=== PATIENT | female | born 2005 | race Caucasian/White ===

== ENCOUNTER 2023-02-07 16:06 | Emergency (ER) | payer BC, SELFPAY ==
[2023-02-07 16:09] VITALS: BP 143/92; PULSE 124; RESP 20; TEMP 36.8; O2SAT 97; BMI 29.2
[2023-02-07 16:13] VITALS: BP 143/92; PULSE 120; PULSE 123; RESP 21; RESP 24; O2SAT 96; O2SAT 97
[2023-02-07 16:16] VITALS: PULSE 128
--- NOTE | 2023-02-07 16:16 | XR_ITS ---
The [address] [address] Patient Name: DELL SALAZAR MRN: [id number] date: 2005 Sex: F Assigned Patient Location: ED.MAIN Current Patient Location: ED.MAIN Accession/Order Number: [id number] Exam Date: 02/07/2023 17:00 Report Date: 02/07/2023 17:32 At the request of: TRUDY VILLEGAS Procedure: XR chest 1V EXAMINATION: XR chest 1V HISTORY: Chest pain COMPARISON: None. TECHNIQUE: Portable chest FINDINGS: The lung parenchyma is free of consolidation or infiltrate. No pneumothorax or pleural effusion. The cardiac, mediastinal and hilar contours are normal. The visualized osseous structures exhibit no gross abnormality. IMPRESSION: No acute cardiopulmonary abnormality. Electronically authenticated by: MIKE HARE Date: 02/07/2023 17:32
--- NOTE | 2023-02-07 16:16 | ECG_ITS ---
[facility] Test Date: 2023-02-07 Pat Name: Shalonda Lynne Department: Room: - Gender: Female [employer]: : 2005 Requested By: Order Number: [id number] Reading MD: CHANDAN CHACKO Measurements Intervals [place] Rate: 116 P: 41 WA: 116 QRS: 68 QRSD: 78 T: 34 QT: 304 QTc: 373 Interpretive Statements 1120 Sinus tachycardia 2210 Short WA interval 9150 abnormal ECG No previous ECG available for comparison Electronically Signed On 02-08-2023 6:53:18 EDT by CHANDAN CHACKO
[2023-02-07 16:30] VITALS: BP 130/79; PULSE 95; RESP 14; O2SAT 97
[2023-02-07 16:44] LABS: Anion Gap 12.9; BUN Creatinine Ratio 9.2; Calcium 9.5 mg/dL (8.5-10.1); Carbon Dioxide 22.3 mmol/L (21.0-32.0); Chloride 107 mmol/L (98-107); Estimated GFR (African America >60 (>=60); Estimated GFR (Non-African Ame >60 (>=60); Glucose 100 mg/dL (74-106); Potassium 4.2 mmol/L (3.5-5.1); Sodium 138 mmol/L (136-145)
[2023-02-07 16:44] LABS: Basophils Percent Auto 0.5 % (0.2-2.0); Eosinophils Absolute Auto 0.2 10^3/uL (0.0-0.7); Eosinophils Percent Auto 1.9 % (0.9-7.0); Hematocrit 43.6 % (36.0-48.0); Hemoglobin 14.4 g/dL (12.0-16.0); Immature Granulocytes Abs Auto 0.02 10^3/uL (0.00-0.03); Immature Granulocytes Pct Auto 0.3 % (0.0-0.5); Lymphocytes Absolute Auto 2.7 10^3/uL (1.2-3.8); Lymphocytes Percent Auto 34.8 % (20.5-60.0); Mean Corpuscular Hemoglobin 28.2 pg (26.7-34.0); Mean Corpuscular Volume 85.5 fL (81.0-99.0); Mean Platelet Volume 10.9 fL (9.5-13.5); Monocytes Absolute Auto 0.3 10^3/uL (0.3-0.8); Monocytes Percent Auto 4.1 % (1.7-12.0); Neutrophils Absolute Auto 4.6 10^3/uL (1.4-6.5); Neutrophils Percent Auto 58.4 % (43.0-75.0); Platelet Count 317 10^3/uL (150-450); Red Cell Distribution Width 12.7 % (11.0-15.0); White Blood Count 7.9 10^3/uL (4.0-11.0)
[2023-02-07] MEDS: 0.9 % SODIUM CHLORIDE 1,000 ML 1000 ML IV (16:47)
[2023-02-07] MEDS: KETOROLAC TROMETHAMINE 30 MG/ML VIAL IVP (16:47)
[2023-02-07 17:00] VITALS: BP 116/67; PULSE 88; RESP 16; O2SAT 99
[2023-02-07 17:05] LABS: D Dimer 0.43 mg/L FEU (<=0.59)
--- NOTE | 2023-02-07 17:18 | ED.CHESTPAI1 ---
HPI - Chest Pain General Chief Complaint: Chest Pain Stated Complaint: CHEST PAIN Time Seen by Provider: 02/07/23 16:15 Source: patient Mode of arrival: walk-in Limitations: no limitations History of Present Illness HPI narrative: She woke at 10am with mid-sternal chest pain. She had been experiencing pain between the shoulder blades for the last 3 days. Then the pain was in her chest and decreased in her back. She went to work and the pain increased - worse with deep breaths and movement of the left UE. No recent cough, injury to the chest or back. No GI or symptoms. She hasn't taken anything for pain. Related Data Home Medications Medication Instructions Recorded Confirmed control 02/07/23 Previous Rx's Medication Instructions Recorded nabumetone 750 mg tablet 750 mg PO BID PRN pain #20 tabs 02/07/23 Allergies Allergy/AdvReac Type Severity Reaction Status Date / Time No Known Drug Allergies Allergy Verified 02/07/23 16:12 Exam Narrative Exam Narrative: Nurses notes and vital signs reviewed and patient is not hypoxic. afebrile General: Well-appearing and in no apparent distress. Skin: Warm, dry, no pallor noted. No rash. Head: Normocephalic, atraumatic. Eye: Pupils are equal, round and EOMI. No scleral icterus. Ears, Nose, Mouth, and Throat: Oral mucosa is moist Cardiovascular: Regular Rate and Rhythm without murmur, gallop or rub. Respiratory: No accessory muscle use or respiratory distress. Lungs are clear to auscultation, no wheezing, rales or rhonchi Chest Wall: no tenderness on sternum palpation Back: No midline thoracic or lumbar vertebral tenderness. No CVA tenderness Musculoskeletal: normal ROM, no calf or popliteal tenderness, no lower extremity edema/swelling GI: Abdomen is soft, non-distended. Normal bowel sounds. No tenderness to palpation. No rebound, guarding, or rigidity noted. Neurological: A&O x4. No cranial nerve dysfunction observed. No truncal ataxia. Moves all extremities. Sensation intact. Psychiatric: Cooperative and interactive. Normal mood and affect. Constitutional Vital Signs - 24 hr 02/07/23 16:09 02/07/23 16:13 Temperature 98.2 F Pulse Rate 123 H Pulse Rate [Monitor] 124 H Respiratory Rate 20 24 Blood Pressure 143/92 H Blood Pressure [Right Arm] 143/92 H Pulse Oximetry 97 96 Oxygen Delivery Method Room Air Course Vital Signs Vital signs: Vital Signs Temperature 98.2 F 02/07/23 16:09 Pulse Rate 124 H 02/07/23 16:09 Respiratory Rate 20 02/07/23 16:09 Blood Pressure 143/92 H 02/07/23 16:09 Pulse Oximetry 97 02/07/23 16:09 Oxygen Delivery Method Room Air 02/07/23 16:09 Temperature 98.2 F 02/07/23 16:09 Pulse Rate 123 H 02/07/23 16:13 Respiratory Rate 24 02/07/23 16:13 Blood Pressure 143/92 H 02/07/23 16:13 Pulse Oximetry 96 02/07/23 16:13 Oxygen Delivery Method Room Air 02/07/23 16:09 MDM - Chest Pain MDM Narrative Medical decision making narrative: Patient was placed on radiographer cardiac catheterization and EKG obtained. Blood drawn and sent for evaluation. CXR obtained. Blood testing including screening d-dimer were normal. CXR negative. EKG = sinus tachycardia Patient was given IV Toradol. On recheck her HR normalized after receiving a Liter of NS IVF and her pain was markedly reduced after getting the IV Toradol. Discharged home with prescription for Relafen and instructions to see her PCP for follow or return to the ED as needed. Lab Data Attestation: I reviewed the patient's lab results. Labs: Lab Results 02/07/23 02/07/23 Range/Units 16:15 16:25 WBC 7.9 (4.0-11.0) 10^3/uL RBC 5.10 (4.20-5.40) 10^6/uL Hgb 14.4 (12.0-16.0) g/dL Hct 43.6 (36.0-48.0) % MCV 85.5 (81.0-99.0) fL MCH 28.2 (26.7-34.0) pg MCHC 33.0 (29.9-35.2) g/dL RDW 12.7 (11.0-15.0) % Plt Count 317 (150-450) 10^3/uL MPV 10.9 (9.5-13.5) fL Neut % (Auto) 58.4 (43.0-75.0) % Lymph % (Auto) 34.8 (20.5-60.0) % Ware % (Auto) 4.1 (1.7-12.0) % Eos % (Auto) 1.9 (0.9-7.0) % Baso % (Auto) 0.5 (0.2-2.0) % Neut # (Auto) 4.6 (1.4-6.5) 10^3/uL Lymph # (Auto) 2.7 (1.2-3.8) 10^3/uL Ware # (Auto) 0.3 (0.3-0.8) 10^3/uL Eos # (Auto) 0.2 (0.0-0.7) 10^3/uL Baso # (Auto) 0.0 (0.0-0.1) 10^3/uL Abs Immat Gran (auto) 0.02 (0.00-0.03) 10^3/uL Imm/Tot Granulo (auto) 0.3 (0.0-0.5) % D-Dimer 0.43 (<=0.59) mg/L FEU Sodium 138 (136-145) mmol/L Potassium 4.2 (3.5-5.1) mmol/L Chloride 107 (98-107) mmol/L Carbon Dioxide 22.3 (21.0-32.0) mmol/L Anion Gap 12.9 BUN 9.0 (7.0-18.0) mg/dL Creatinine 0.98 (0.55-1.02) mg/dL Est GFR ( Amer) >60 (>=60) Est GFR (Non-Af Amer) >60 (>=60) BUN/Creatinine Ratio 9.2 Glucose 100 (74-106) mg/dL Calcium 9.5 (8.5-10.1) mg/dL ECG Data Interpretation: EKG interpretation: Emergency Department physician interpretation. Sinus tachycardia at 116bpm. Normal axis, short [place] interval. No ST segment elevation or depression. Discharge Plan Discharge Chief Complaint: Chest Pain Clinical Impression: Pleurisy Patient Disposition: Home, Self-Care Time of Disposition Decision: 17:31 Prescriptions / Home Meds: New nabumetone 750 mg tablet 750 mg PO BID PRN (Reason: pain) Qty: 20 0RF No Action control Instructions: Pleurisy (ED) Stand Alone Forms: Portal Instructions Referrals: Physician,Non-Staff, MD [Primary Care Provider] - 1 week
[2023-02-07 17:30] VITALS: BP 105/71; PULSE 102; RESP 23; O2SAT 99
== END 2023-02-07 18:00 | disposition home or self-care (01) ==
PROVIDERS: Emergency Provider Emergency Medicine
DX: R09.1 Pleurisy (principal); Z79.3 Long term (current) use of hormonal contraceptives
CPT/HCPCS: 36415; 71045; 80048; 85025; 85378; 93005; 96374; 99285

== ENCOUNTER 2024-02-28 22:11 | Emergency (ER) | payer OTHER, SELFPAY ==
[2024-02-28 22:18] VITALS: BP 131/92; PULSE 111; TEMP 36.9; O2SAT 96; BMI 29.2
--- NOTE | 2024-02-28 22:22 | PC.NURSE ---
Small incision to left index finger, no redness or drainage. Patient reports washing area with soap and water immediately following needle stick.
--- NOTE | 2024-02-28 22:35 | ED.UPPEXIN1 ---
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 Does not believe the resident has any communicable diseases. Here for blood work per policy of her job. Related Data Home Medications ?Medication ?Instructions ?Recorded ?Confirmed control 02/07/23 Previous Rx's ?Medication ?Instructions ?Recorded nabumetone 750 mg tablet 750 mg PO BID PRN pain #20 tabs 02/07/23 Allergies Allergy/AdvReac Type Severity Reaction Status Date / Time No Known Drug Allergies Allergy Verified 02/28/24 22:18 Opioid HPI Opioid Management Most Recent Pain and Opioid Data: No Data to Display Review of Systems ROS Status of ROS 10 or more systems reviewed and unremarkable except as noted in history and below Exam Constitutional Vital Signs, click to edit/add: Last Vital Signs Temp 98.4 F 02/28/24 22:18 Pulse 111 H 02/28/24 22:18 Resp 18 02/28/24 22:18 BP 131/92 H 02/28/24 22:18 Pulse Ox 96 02/28/24 22:18 O2 Del Method Room Air 02/28/24 22:18 Common normals: no apparent distress, average body habitus, oriented x3, no limitations, healthy appearing, alert and well nourished [facility] Common normals: normocephalic and head/scalp atraumatic Eye Common normals: EOMs intact bilaterally and conjunctivae normal Respiratory Common normals: normal respiratory effort, no retractions and no use of accessory muscles Cardio Common normals: regular rate, regular rhythm, S1 normal heart sound and S2 normal heart sound Extremity Other: fine needle poke left index finger Neuro Common normals: oriented x3, CN's II-XII intact bilaterally, moves all extremities and no focal motor deficits Psych Appearance: grossly normal Course Vital Signs Vital signs: Vital Signs Temperature 98.4 F 02/28/24 22:18 Pulse Rate 111 H 02/28/24 22:18 Respiratory Rate 18 02/28/24 22:18 Blood Pressure 131/92 H 02/28/24 22:18 Pulse Oximetry 96 02/28/24 22:18 Oxygen Delivery Method Room Air 02/28/24 22:18 Temperature 98.4 F 02/28/24 22:18 Pulse Rate 111 H 02/28/24 22:18 Respiratory Rate 18 02/28/24 22:18 Blood Pressure 131/92 H 02/28/24 22:18 Pulse Oximetry 96 02/28/24 22:18 Oxygen Delivery Method Room Air 02/28/24 22:18 MDM - Extremity Injury (Upper) MDM Narrative Medical decision making narrative: patient presents after finger poke with contaminated needle at work. minute puncture wound of the index finger. labs drawn including HIV and hepatitis and patient discharged home Discharge Plan Discharge Stand Alone Forms: Portal Instructions Chief Complaint: Extremity Injury, Upper Clinical Impression: Puncture wound of finger of left hand Patient Disposition: Home, Self-Care Prescriptions / Home Meds: No Action control nabumetone 750 mg tablet 750 mg PO BID PRN (Reason: pain) Qty: 20 0RF Print Language: Romanian Instructions: Puncture Wound (ED) Referrals: Physician,Non-Staff, MD [Primary Care Provider] - 1 week
[2024-03-01 06:08] LABS: HBsAg Screen Negative (Negative); HCV Ab Non Reactive (Non Reactive); HIV Ab/p24 Ag Screen Non Reactive (Non Reactive); Hep A Ab, IgM Negative (Negative); Hep B Core Ab, IgM Negative (Negative)
== END 2024-02-28 23:49 | disposition home or self-care (01) ==
PROVIDERS: Emergency Provider Internal Medicine
DX: S61.231A Puncture wound without foreign body of left index finger without damage to nail, initial encounter (principal); Z77.21 Contact with and (suspected) exposure to potentially hazardous body fluids; W46.1XXA Contact with contaminated hypodermic needle, initial encounter
CPT/HCPCS: 36415; 80074; 87389; 99283

== ENCOUNTER 2024-04-17 19:08 | Outpatient (REF) | payer BC, SELFPAY ==
[2024-04-23 16:10] LABS: Age Gdln ACOG Testing Note (.); IGP, rfx Aptima HPV ASCU Note (.)
== END 2024-04-17 19:09 | disposition home or self-care (01) ==
LOC: LAB 19:08
PROVIDERS: Visit Provider Physician Assistant
DX: Z01.419 Encounter for gynecological examination (general) (routine) without abnormal findings (principal)
CPT/HCPCS: 88175

== ENCOUNTER 2025-04-21 12:15 | Outpatient (REF) | payer BC, SELFPAY ==
--- OUTSIDE RECORDS SUMMARY | 2025-04-21 12:21 | XMS_ITS | CCD ---
Author Organization [facility] Care Team Providers Care Mis Specialist Name Role Phone AMY RHOADES Admitting Unavailable AMY RHOADES Attending Unavailable MISC, DOCTOR Primary Care Unavailable MISC, DOCTOR Consulting Unavailable KELFRANKLYN AML Admitting Unavailable MOHAN SIDHU Attending Unavailable TOI SAAVEDRA Primary Care Unavailable KELFRANKLYN, MOHAN Consulting Unavailable BOBBY NOLAN Admitting Unavailable BOBBY NOLAN Attending Unavailable BOBBY NOLAN Consulting Unavailable Bekah Cain Unavailable Unavailable Primary Care Provider UnavailMAR Fam Attending Unavailable SERGIO MONACO Attending Unavailable SERGIO MONACO Attending Unavailable Allergies Allergy Classification Reported Allergen(s) Allergy Type Date of Onset Reaction(s) Facility (12 sources) nickel Drug Allergy 03-11-2024 [facility] (2 sources) Octacosanol Drug Allergy 05-06-2024 [facility] Healthcare Work Phone: Medications Current Medications Medication Drug Class(es) Dates Sig (Normalized) Sig (Original) dextromethorphan hydrobromide 1.5 mg/ml / pyrilamine maleate 1.5 mg/ml oral solution (2 sources) Uncompetitive Y-zlmfzp-W-asparta te Receptor Antagonist, Sigma-1 Agonist Start: 2 take 10 mL by mouth every eight hours [place] DM 7.5-7.5 MG/5ML 10 mL Orally every 8 hours for 5 days Jan, Active levonorgestrel 0.645456 mg/hr intrauterine system (9 sources) Progestin, Progestin-containi ng Intrauterine Device Start: 4 End: 9 Levonorgestrel intrauterine device 52 mg methylPREDNISolone 4 mg oral tablet (2 sources) Corticosteroid Start: 2 methylPREDNISolone 4 MG as directed Orally for daily dose take half with breakfast, half with dinner for 6 days Jan, Active Norethindrone-E.Estrad iol-Iron (Shruthi Fe 1.5/30 (28)) 1.5 mg-30 mcg (21)/75 mg (7) tablet (1 source) Start: take 1 tablet by mouth once daily Norethindrone-E.Estra diol-Iron (Shruthi Fe 1.5/30 (28)) 1.5 mg-30 mcg (21)/75 mg (7) tablet Active 1 TAB PO Daily March 11, 2024 12:00am Completed/Discontinued Medications Medication Drug Class(es) Dates Sig (Normalized) Sig (Original) Ethinyl Estradiol / Ferrous fumarate / Norethindrone (7 sources) Estrogen Start: 03-10-2024 End: 05-06-2024 norethindrone-ethin yl estradiol-iron (Blisovi Fe 1.5/30) 1.5-30 MG-MCG tablet Indications: control counseling Take 1 tablet by mouth Daily 28 tablet 11 03/10/2024 05/06/2024 Discontinued (Other) Start: 03-10-2024 End: 03-10-2025 norethindrone-ethinyl estrad iol-iron (Blisovi Fe 1.5/30) 1.5-30 MG-MCG tablet Indications: control counseling Take 1 tablet by mouth Daily 28 tablet 11 03/10/2024 03/10/2025 Active Junel FE 1.5/30 1.5-30 MG-MCG TAKE 1 TABLET BY MOUTH EVERY DAY Oral for 84 Days Active ethinyl estradiol 0.03 mg / norethindrone acetate 1.5 mg oral tablet (4 sources) Estrogen Start: 03-11-2024 End: 06-03-2024 norethindrone ac-eth estradio (Shruthi 1.5/30) 1.5-30 MG-MCG tablet tablet 1 tablet 03/11/2024 06/03/2024 Discontinued (Other) sertraline 100 mg oral tablet (4 sources) Serotonin Reuptake Inhibitor End: 05-06-2024 sertraline (Zoloft) 100 MG tablet every 12 (twelve) hours 05/06/2024 Discontinued (Other) Problems Active Problems Problem Classification Problem Date Documented Date Episodic/Chronic Contraceptive and procreative management (3 sources) Intrauterine contraceptive device in situ; Translations: [Encounter for routine checking of intrauterine contraceptive device] 06-03-2024 Episodic Menstrual disorders (4 sources) Excessive and frequent menstruation with regular cycle; Translations: [EXCESS FREQ MENSTRUATION W/REG CYCL] Onset: 07-28-2019 Chronic Other female genital disorders (2 sources) Vaginal discharge; Translations: [Other specified noninflammatory disorders of vagina] 06-03-2024 Episodic Past or Other Problems Problem Classification Problem Date Documented Da te Episodic/Chronic Acute bronchitis (1 source) Acute bronchitis due to other specified organisms Onset: 02-02-2022 Resolved: 02-02-2022 Episodic Conditions associated with dizziness or vertigo (4 sources) Dizziness and giddiness; Translations: [DIZZINESS AND GIDDINESS] Onset: 04-17-2019 Episodic Headache; including migraine (1 source) Headache; Translations: [HEADACHE] Onset: 04-09-2019 Episodic Unclassified (1 source) Contact with and (suspected) exposure to covid-19 Z20.822 Onset: 02-02-2022 Resolved: 02-02-2022 Results Test Name Value Interpretation Reference Range Facility URETHRITIS/DISCHARGE PLUS VA GINITIS (HTRX)on 06-04-2024 ATOPOBIUM VAGINAE 0 [facility] ATOPOBIUM VAGINAE Not detected [facility] BVAB 2,3 (BACTERIAL VAGINOSIS ASSOCIATED BACTERIA 2, 3); MOBILUNCUS SPP 0 [facility] BVAB 2,3 (BACTERIAL VAGINOSIS ASSOCIATED BACTERIA 2, 3); MOBILUNCUS SPP Not detected [facility] BECCA ALBICANS, PARAPSILOSIS, TROPICALIS 0 [facility] BECCA ALBICANS, PARAPSILOSIS, TROPICALIS Not detected [facility] BECCA GLABRATA 0 [facility] lthcare BECCA GLABRATA Not detected [facility] ealthcare [facility] [address] [facility] Not detected [facility] ltare CHLAMYDIA TRACHOMATIS 0 [facility] CHLAMYDIA TRACHOMATIS Not detected [facility] GARDNERELLA VAGINALIS 31.81 Abnormal [facility] GARDNERELLA VAGINALIS Detected Abnormal [facility] Interpretation and review of laboratory results [facility] (TYPES 1, 2) 0 [facility] MEGASPHAERA (TYPES 1, 2) Not detected [facility] MYCOPLASMA GENITALIUM 0 [facility] MYCOPLASMA GENITALIUM Not detected [facility] NEISSERIA GONORRHOEAE 0 [facility] NEISSERIA GONORRHOEAE Not detected [facility] TRICHOMONAS VAGINALIS 0 [facility] TRICHOMONAS VAGINALIS Not detected [facility] HCG ( test) Ql (U)o n 05-06-2024 Interpretation and review of laboratory results Normal [facility] re Preg Test, Ur Negative [facility] IUD Insertionon 05-06-2024 Dipika Callahan LPN 05/07/2024 9:42 AM IUD Insertion Date/Time: 05/06/2024 10:04 AM Performed by: Sergio Monaco DO Authorized by: Sergio Monaco DO Consent: Consent obtained: Written Consent given by: Patient Procedure risks and benefits discussed: yes Patient questions answered: yes Patient agrees, verbalizes understanding, and wants to proceed: yes Educational handouts given: yes Instructions and paperwork completed: yes Crosby protocol: Patient states understanding of procedure being performed: yes Relevant documents present and verified: yes Test results available and properly labeled: yes Imaging studies available: yes Required blood products, implants, devices, and special equipment available: yes Procedure: Pelvic exam performed: yes Negative GC/chlamydia test: no Negative urine test: yes Negative serum test: no Cervix cleaned and prepped: yes Speculum placed in vagina: yes Tenaculum applied to cervix: yes Uterus sounded: yes IUD inserted with no complications: yes IUD type: Mirena Strings trimmed: yes Post-procedure: Patient tolerated procedure well: yes Patient will follow up after next period: no Comments: IUD Insertion: Patient presents today for an IUD Insertion. Patient is having a Mirena placed and written consent was obtained. Patient was placed in the dorsal lithotomy position with feet in stirrups. A sterile speculum ws placed into the vagina and the cervix was visualized. Cervix was cleansed with betadine and the anterior lip was grasped with ring forceps. Uterus was then gently sounded. New IUD device was gently advanced through the endocervix, toward te uterine fundus. The IUD was then deployed as device was gently removed from the uterus. The IUD strings were cut to the length from external os. All instruments were removed from the vagina. Post-procedure instructions given. All of patients questions were answered and she expressed understanding. Advised to call interim with any questions or concerns. Follow Up: Patient is to return to the office in 4 weeks for a string check. [facility] e IGP,APTIMA HPV,AGE GDLNon AGE GDLN ACOG TESTING Note . [facility] Comment on above: TESTS RESULT FLAG [facility] REF RANGE LAB Clinician Provided Cytology Information Source.............Cervix;Endocervix No. of containers..01 ThinPrep Vial Age Algo ACOG Ev... FLAG LEGEND: L-Low Normal,H-High Normal,LL-Alert Low,HH-Alert High <-Panic Low,>-Panic High,A-Abnormal,AA-Critical Abnormal Performed at: 01 =G [address] [address] Ashanti Cheung MD, IGP, RFX APTIMA HPV ASCU Note . [facility] Comment on above: TESTS RESULT [facility] REF RANGE LAB DIAGNOSIS: 02 NEGATIVE FOR INTRAEPITHELIAL LESION OR MALIGNANCY. FUNGAL ORGANISMS MORPHOLOGICALLY CONSISTENT WITH BECCA SPECIES ARE PRESENT. Specimen adequacy: 02 Satisfactory for evaluation. Endocervical and/or squamous metaplastic cells (endocervical component) are present. Performed by: Baltazar Cohn, Personal Investment Adviser ([facility]) . 02 Note: Note 02 The Pap smear is a screening test designed to aid in the detection of premalignant and malignant conditions of the uterine cervix. It is not a diagnostic procedure and should not be used as the sole means of detecting cervical cancer. Both false-positive and false-negative reports do occur. Test Methodology: Note 02 This liquid based ThinPrep(R) pap test was screened with the use of an image guided system. . 02 The HPV DNA reflex criteria were not met with this specimen result therefore, no HPV testing was performed. FLAG LEGEND: L-Low Normal,H-High Normal,LL-Alert Low,HH-Alert High <-Panic Low,>-Panic High,A-Abnormal,AA-Critical Abnormal Performed at: [address] [place] [address] Ashanti Cheung MD, Performed at: =G - [facility] [address] [id number] Baccarat Manager: Ashanti Cheung MD, Phone: [phone] Performed at: - [facility] [id number] Baccarat Manager: Ashanti Cheung MD, Phone: [phone] BRUSH-SPATULA CERVIX ENDOCERVIX [facility] COVID Quick Testingon 2021 Result Negative [employer] Other Quick Strepon 02-02-2022 S. pyogenes Org specific cx Ql (Throat) Negative [employer] Other Quick Strep [employer] Other Immunization Recordson 02-01 Immunization Records [id number]# 1.00CD:127 Normal [facility] Pediatrics Office/Clinic Not higinio 11-02-2020 Pediatrics Office/Clinic Note Chief Complaint Patient in office for recheck depression. History of Present Illness The patient or their guardian verbally consented to allow Murphy Ari Rodriguez to record this visit. For this visit the chief historian for this dependent patient is himself. Depression and Anxiety: Shalonda Lynne is a 15-year-old female who presents today with depression and anxiety. She was last seen in 08/2020. Her PHQ-9 was 1 point lower than previously. She states she has been too busy to think about her mental health, she is a high school senior, a college student and she has 2 jobs. She reports no suicidal ideology. 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 She is also questioning vaccinations she needs for school. She would also like to have her ears checked, feels she is not hearing as well as she should. She is currently attending counseling at [facility]. She is currently taking sertraline 100 mg 2 tablets daily. PHQ9 FT Little Interest - Pleasure in Activities : Not at all Feeling Down, Depressed, Hopeless : More than half the days Trouble Falling or Staying Asleep : Nearly every day Feeling Tired or Little Energy : Nearly every day Poor Appetite or Overeating : Several days Feeling Bad About Yourself : Not at all Trouble Concentrating : Several days Moving or Speaking Slowly : Not at all Thoughts Better Off or Hurting Self : Not at all How difficult have these problems made it for you : Somewhat difficult Depression Past Two Years : Yes Severity Score : 10 [1] Review of Systems ROS - Provider CONSTITUTIONAL: Negative for growth problems, fatigue, unexplained fevers, and weight loss. EYES: Negative for apparent vision problems, eye drainage, and lazy eye. E/N/T: Negative for apparent hearing deficits, chronic nasal congestion, dental problems, and speech problems. CARDIOVASCULAR: Negative for chest pain, cyanotic spells, edema, and poor exercise tolerance. RESPIRATORY: Negative for chronic cough, dyspnea, exposure to tuberculosis, and wheezing. GASTROINTESTINAL: Negative for abdominal pain, constipation, diarrhea, feeding/nutritional problems, and vomiting. GENITOURINARY: Negative for dysuria, hematuria, difficulty voiding, or rashes/lesions of the external genitalia. MUSCULOSKELETAL: Negative for limb or joint pain, joint swelling, and gait abnormalities. INTEGUMENTARY: Negative for atopic dermatitis, atypical moles, pruritis, rashes, and skin lesions. NEUROLOGICAL: Negative for abnormal tone, developmental delays, syncope, headaches, and seizures. HEMATOLOGIC/LYMPHATI C: Negative for bleeding, excessive bruising, and lymphadenopathy. ENDOCRINE: Negative for abnormal growth or pubertal development, polyuria, and polydipsia. ALLERGIC/IMMUNOLOGIC : Negative for allergies, frequent illnesses, HIV exposure, and urticaria. PSYCHIATRIC: Depression Physical Exam Vitals & Measurements T: 36.4 ?C (Temporal Artery) HR: 76(Peripheral) RR: 16 BP: 104/62 HT: 163.5 cm HT: 163.5 cm WT: 62.0 kg WT: 62 kg BMI: 23.19 GENERAL: The patient is well developed, well nourished, in no apparent distress. EARS: Normal NEUROLOGIC: Normal for age Cranial nerves: II intact; III intact; VII intact; Normal DTR's elicited in biceps, triceps, supinator, knee, and ankle jerk; Sensation: normal to touch and pinprick; vibration and proprioception senses intact; Normal coordination and cerebellar function; Psych: Oriented, easily talks about her issues - Much more talkative very much more social. Doing better. Assessment/Plan 1. Depression with anxiety (F41.8: Other specified anxiety disorders) Continue Counseling Follow up in 3 months Orders: sertraline, 200 mg = 2 tab(s), Oral, Daily, X 30 day(s), # 60 tab(s), Refills(s) 0, Pharmacy: [facility], 163.5, cm, 11/01/20 10:34:00 EDT, Height/Length Dosing, 62, kg, 11/01/20 10:34:00 EDT, Weight Dosing She is up to date on her vaccinations. Total time spent preparing the chart, conducting of the encounter with the patient and family and time spent documenting, reviewing and ordering tests was 20 minutes ATTESTATION: Documentation services were performed by SORIN after patient consented to recording for addiction specialist and provider reviewed before signing. SORIN: Cathy Gusman Follow-up With When Contact Information KERI HOOKER, Toi Kymberly In 3 months Additional Instructions: For Depression Patient Education Managing Anxiety, Teen Problem List/Past Medical History Ongoing Depression with anxiety Dizziness Headache, classical migraine Historical Acute UTI Contact dermatitis due to metal Procedure/Surgical History Dental, Spider angioma of skin. Medications Non-Formulary Medication sertraline 100 mg Tab, 200 mg= 2 tab(s), Oral, Daily Allergies No Known Allergies No Known Medication Allergies Social History Alcohol Household alcohol concerns: No., (more content not included)... [facility] Ambulatory Clinical Summaryo n 11-01-2020 Ambulatory Clinical Summary {[id number] [facility] Patient Educationon 11-02-19 21 Patient Education Mental and Behavioral Health Managing Anxiety, Teen After being diagnosed with an anxiety disorder, you may be relieved to know why you have felt or behaved a certain way. You may also feel overwhelmed about the treatment ahead and what it will mean for your life. With care and support, you can manage this condition and recover from it. How to manage lifestyle changes Managing stress and anxiety Stress is your body's reaction to life changes and events, both good and bad. When you are faced with something exciting or potentially dangerous, your body responds by preparing to fight or run away. This response, called the thczt-fv-cibfgz response, is a normal response to stress. When your brain starts this response, it tells your body to move the blood faster and to prepare for the demands of the expected challenge. When this happens, you may experience: ? A faster heart rate than usual. ? Blood flowing to the large muscles. ? A feeling of tension and focus. Stress can last a few hours but usually goes away after the triggering event ends. If the effects last a long time, or if you are worrying a lot about things you cannot control, it is likely that your stress has led to anxiety. Although stress can play a major role in anxiety, it is not the same as anxiety. Anxiety is more complicated to manage and often requires special forms of treatment. Stress does play a part in causing anxiety, and thus it is important to learn how to manage your stress more effectively. Talk with your health care provider or a counselor to learn more about reducing anxiety and stress. He or she may suggest some ways to lower tension (tension reduction techniques), such as: ? Music therapy. This can include creating or listening to music that you enjoy and that inspires you. ? Mindfulness-based meditation. This involves being aware of your normal breaths while not trying to control your breathing. It can be done while sitting or walking. ? Deep breathing. To do this, expand your stomach and inhale slowly through your nose. Hold your breath for 3?5 seconds. Then exhale slowly, letting your stomach muscles relax. ? Self-talk. This involves identifying thought patterns that lead to anxiety reactions and changing those patterns. ? Muscle relaxation. This involves tensing muscles and then relaxing them. ? Visual imagery. This involves mental imagery to relax. ? Yoga. Through yoga poses, you can lower tension and promote relaxation. Choose a tension reduction technique that suits your lifestyle and personality. Techniques to reduce anxiety and tension take time and practice. Set aside 5?15 minutes a day to do them. Therapists can offer counseling for anxiety and training in these techniques. Medicines Medicines can help ease symptoms. Medicines for anxiety include: ? Anti-anxiety drugs. ? Antidepressants. Medicines are often used as a primary treatment for anxiety disorder. Medicines will be prescribed by a health care provider. When used together, medicines, psychotherapy, and tension reduction techniques may be the most effective treatment. Relationships Relationships can play a big part in helping you recover. Try to spend more time talking with a trusted friend or family member about your thoughts and feelings. Identify two or three people who you think might help. How to recognize changes in your anxiety Everyone responds differently to treatment for anxiety. Recovery from anxiety happens when symptoms decrease and stop interfering with your daily activities at home or work. This may mean that you will start to: ? Have better concentration and focus. ? Sleep better. ? Be less irritable. ? Have more energy. ? Have improved memory. ? Spend far less time each day worrying about things that you cannot control. It is important to recognize when your condition is getting worse. Contact your health care provider if your symptoms interfere with home, school, or work, and you feel like your condition is not improving. Follow these instructions at home: Activity ? Get enough exercise. Find activities that you enjoy, such as taking a walk, dancing, or playing a sport for fun. ? Most teens should exercise for at least one hour each day. ? If you cannot exercise for an hour, at least go outside for a walk. ? Get the right amount and quality of sleep. Most teens need 8.5?9.5 hours of sleep each night. ? Find an activity that helps you calm down, such as: ? Writing in a diary. ? Drawing or painting. ? Reading a book. ? Watching a funny movie. Lifestyle ? Spend time with friends. ? Eat a healthy diet that includes plenty of vegetables, fruits, whole grains, low-fat dairy products, and lean protein. Do not eat a lot of foods that are high in solid fats, added sugars, or salt. ? Make choices that simplify your life. ? Do not use any products that contain nicotine or tobacco, such (more content not included)... Normal [facility] Ambulatory Clinical Summaryo n 08-23-2020 Ambulatory Clinical Summary {[id number] [facility] Pediatrics Office/Clinic Not higinio 08-23-2020 Pediatrics Office/Clinic Note Chief Complaint Patient in office for recheck depression. History of Present Illness Anxiety and Depression: The patient says she feels numb. Appetite is improved. No suicidal ideology. The patient had 0 panic attack. The patient is seeing a counselor at [facility]. I increased her Zoloft only 4 weeks ago The patient seems to be doing better but feels a bit numb. The patient sees Geena Gusman at [facility] DARIN-7 FT GAD7 Nervousness : Over half the days GAD7 Unable to Control Worry : Several days GAD7 Worrying Too Much : Several days GAD7 Trouble Relaxing : Nearly every day GAD7 Restlessness : Nearly every day GAD7 Irritable : Several days GAD7 Fear : Not at all sure GAD7 Score : 11 GAD7 Problem Severity : Not at all Mary Beth English MA M - 08/23/2020 10:40 EST [1] Depression Screening Little Interest, Pleasure in Activities (ref) : Nearly every day Feeling Down, Depressed, Hopeless : Nearly every day Initial Depression Screening Score : 6 Trouble Falling or Staying Asleep : Nearly every day Feeling Tired or Little Energy : Nearly every day Poor Appetite or Overeating : More than half the days Feeling Bad About Yourself : Not at all Trouble Concentrating : Several days Moving or Speaking Slowly : Several days Thoughts Better Off or Hurting Self : Not at all Difficulty at Work, Home, or Getting Along With Others : Not difficult at all Detailed Depression Screening Score : 10 Total Depression Screening Score : 16 FT AMB Depression Screening Result : Positive Mary Beth Enlgish MA - 08/23/2020 10:38 EST [2] Review of Systems PHQ Score Initial Depression Screen Score: 6 Detailed Depression Screen Score: 10 Total Depression Screen Score: 16 CONSTITUTIONAL: Negative for growth problems, fatigue, unexplained fevers, and weight loss. EYES: Negative for apparent vision problems, eye drainage, and lazy eye. E/N/T: Negative for apparent hearing deficits, chronic nasal congestion, dental problems, and speech problems. CARDIOVASCULAR: Negative for chest pain, cyanotic spells, edema, and poor exercise tolerance. RESPIRATORY: Negative for chronic cough, dyspnea, exposure to tuberculosis, and wheezing. GASTROINTESTINAL: Negative for abdominal pain, constipation, diarrhea, feeding/nutritional problems, and vomiting. GENITOURINARY: Negative for dysuria, hematuria, difficulty voiding, or rashes/lesions of the external genitalia. MUSCULOSKELETAL: Negative for limb or joint pain, joint swelling, and gait abnormalities. INTEGUMENTARY: Negative for atopic dermatitis, atypical moles, pruritis, rashes, and skin lesions. NEUROLOGICAL: Negative for abnormal tone, developmental delays, syncope, headaches, and seizures. HEMATOLOGIC/LYMPHATI C: Negative for bleeding, excessive bruising, and lymphadenopathy. ENDOCRINE: Negative for abnormal growth or pubertal development, polyuria, and polydipsia. ALLERGIC/IMMUNOLOGIC : Negative for allergies, frequent illnesses, HIV exposure, and urticaria. PSYCHIATRIC: Depression and anxiety improved, Feels numb Physical Exam Vitals & Measurements BP: 102/62 HT: 164 cm HT: 164.0 cm WT: 60.5 kg WT: 60.5 kg BMI: 22.49 GENERAL: The patient is well developed, well nourished, in no apparent distress. NEUROLOGIC: Normal for age Cranial nerves: II intact; III intact; VII intact; Normal DTR's elicited in biceps, triceps, supinator, knee, and ankle jerk; Sensation: normal to touch and pinprick; vibration and proprioception senses intact; Normal coordination and cerebellar function; Psych: Oriented, easily talks about her issues - Much more talkative very much more social. Doing better. Assessment/Plan 1. Depression with anxiety (F41.8: Other specified anxiety disorders) Have the counselor send a report. continue Zoloft Follow up in 1 month Follow-up With When Contact Information KERI HOOKER, Toi Traylor In 1 month Additional Instructions: Recheck Depression and Anxiety Problem List/Past Medical History Ongoing Depression with anxiety Dizziness Headache, classical migraine Historical Acute UTI Contact dermatitis due to metal Procedure/Surgical History Dental, Spider angioma of skin. Medications Non-Formulary Medication sertraline 100 mg Tab, 200 mg= 2 tab(s), Oral, Daily Allergies No Known Allergies No Known Medication Allergies Social History Alcohol Household alcohol concerns: No., 04/04/2019 Substance Abuse Household substance abuse concerns: No., 04/04/2019 Tobacco Never (less than 100 in lifetime) Tobacco Use:. Never Smokeless Tobacco Use:. Household tobacco concerns: No., 01/15/2020 Family History Allergies: Sister and Brother. Asthma: Father. Breast cancer: Grandparent. COPD: Grandparent. Diabetes mellitus type 1: Other Relationship. Diabetes mellitus type 2: Grandparent. Mitral valve disorder: Grandparent. Immunizations Vaccine Date Status meningococcal conjugate vaccine 04/25/ (more content not included)... Normal [facility] Ambulatory Clinical Summaryo n 07-29-2020 Ambulatory Clinical Summary {[id number] Normal [facility] Ambulatory Clinical Summary {[id number]}CD:[id number] [facility] Pediatrics Office/Clinic Not higinio 07-29-2020 Pediatrics Office/Clinic Note Chief Complaint Patient in office for follow up Depression. History of Present Illness Anxiety and Depression: The patient says she feels numb. Appetite is improved. No suicidal ideology. The patient had 0 panic attack. The patient is seeing a counselor at [facility]. I increased her Zoloft only 2 weks ago Depression Screening Little Interest, Pleasure in Activities (ref) : More than half the days Feeling Down, Depressed, Hopeless : Nearly every day Initial Depression Screening Score : 5 Trouble Falling or Staying Asleep : Nearly every day Feeling Tired or Little Energy : Nearly every day Poor Appetite or Overeating : More than half the days Feeling Bad About Yourself : Not at all Trouble Concentrating : More than half the days Moving or Speaking Slowly : More than half the days Thoughts Better Off or Hurting Self : Not at all Difficulty at Work, Home, or Getting Along With Others : Not difficult at all Detailed Depression Screening Score : 12 Total Depression Screening Score : 17 FT AMB Depression Screening Result : Positive [1] Review of Systems PHQ Score Initial Depression Screen Score: 5 Detailed Depression Screen Score: 12 Total Depression Screen Score: 17 CONSTITUTIONAL: Negative for growth problems, fatigue, unexplained fevers, and weight loss. EYES: Negative for apparent vision problems, eye drainage, and lazy eye. E/N/T: Negative for apparent hearing deficits, chronic nasal congestion, dental problems, and speech problems. CARDIOVASCULAR: Negative for chest pain, cyanotic spells, edema, and poor exercise tolerance. RESPIRATORY: Negative for chronic cough, dyspnea, exposure to tuberculosis, and wheezing. GASTROINTESTINAL: Negative for abdominal pain, constipation, diarrhea, feeding/nutritional problems, and vomiting. GENITOURINARY: Negative for dysuria, hematuria, difficulty voiding, or rashes/lesions of the external genitalia. MUSCULOSKELETAL: Negative for limb or joint pain, joint swelling, and gait abnormalities. INTEGUMENTARY: Negative for atopic dermatitis, atypical moles, pruritis, rashes, and skin lesions. NEUROLOGICAL: Negative for abnormal tone, developmental delays, syncope, headaches, and seizures. HEMATOLOGIC/LYMPHATI C: Negative for bleeding, excessive bruising, and lymphadenopathy. ENDOCRINE: Negative for abnormal growth or pubertal development, polyuria, and polydipsia. ALLERGIC/IMMUNOLOGIC : Negative for allergies, frequent illnesses, HIV exposure, and urticaria. PSYCHIATRIC: Depression and anxiety improved Physical Exam Vitals & Measurements T: 36.7 ?C (Temporal Artery) HR: 78(Peripheral) RR: 16 BP: 98/64 HT: 165.0 cm HT: 165 cm WT: 59.5 kg WT: 59.5 kg BMI: 21.85 GENERAL: The patient is well developed, well nourished, in no apparent distress. NEUROLOGIC: Normal for age Cranial nerves: II intact; III intact; VII intact; Normal DTR's elicited in biceps, triceps, supinator, knee, and ankle jerk; Sensation: normal to touch and pinprick; vibration and proprioception senses intact; Normal coordination and cerebellar function; Psych: Oriented, easily talks about her issues - Much more talkative very much more social. Doing better. Assessment/Plan 1. Depression with anxiety (F41.8: Other specified anxiety disorders) Continue the meds. Follow up in 2 weeks Follow-up With When Contact Information KERI HOOKER, Toi Traylor Within 2 to 4 weeks Additional Instructions: Recheck Depression Problem List/Past Medical History Ongoing Depression with anxiety Dizziness Headache, classical migraine Historical Acute UTI Contact dermatitis due to metal Procedure/Surgical History Dental, Spider angioma of skin. Medications Non-Formulary Medication sertraline 100 mg Tab, 200 mg= 2 tab(s), Oral, Daily Allergies No Known Allergies No Known Medication Allergies Social History Alcohol Household alcohol concerns: No., 04/04/2019 Substance Abuse Household substance abuse concerns: No., 04/04/2019 Tobacco Never (less than 100 in lifetime) Tobacco Use:. Never Smokeless Tobacco Use:. Household tobacco concerns: No., 01/15/2020 Family History Allergies: Sister and Brother. Asthma: Father. Breast cancer: Grandparent. COPD: Grandparent. Diabetes mellitus type 1: Other Relationship. Diabetes mellitus type 2: Grandparent. Mitral valve disorder: Grandparent. Immunizations Vaccine Date Status meningococcal conjugate vaccine 04/25/2019 Given meningococcal group B vaccine 04/25/2019 Given influenza virus vaccine, inactivated 07/25/2018 Recorded meningococcal group B vaccine 07/25/2018 Recorded human papillomavirus vaccine 07/25/2018 Recorded human papillomavirus vaccine 04/12/2015 Recorded meningococcal conjugate vaccine 04/12/2015 Recorded hepatitis A adult vaccine 04/09/2014 Recorded influenza virus vaccine, inactivated 04/04/2013 Recorded hepatitis A adult vaccine 04/04/2013 Recorded diphtheria/pertussis , (more content not included)... Normal [facility] Ambulatory Clinical Summaryo n 07-15-2020 Ambulatory Clinical Summary {[id number]}CD:[id number] Normal [facility] Pediatrics Office/Clinic Not higinio 07-15-2020 Pediatrics Office/Clinic Note Chief Complaint Patient in office for recheck Depression and Anxiety. Still seeing a counselor next appt September 09. Last appt saw them around 4-5 weeks ago. History of Present Illness Anxiety and Depression: The patient says she doing worse. Appetite is improved. No suicidal ideology. The patient had 0 panic attack. The patient is seeing a counselor at [facility]. Mom has tested positive for COVID. Mom is better. The patient is improved. DARIN-7 FT GAD7 Nervousness : Over half the days GAD7 Unable to Control Worry : Several days GAD7 Worrying Too Much : Several days GAD7 Trouble Relaxing : Nearly every day GAD7 Restlessness : Several days GAD7 Irritable : Several days GAD7 Fear : Not at all sure GAD7 Score : 9 GAD7 Problem Severity : Somewhat difficult [1] Depression Screening Little Interest, Pleasure in Activities (ref) : Nearly every day Feeling Down, Depressed, Hopeless : Nearly every day Initial Depression Screening Score : 6 Trouble Falling or Staying Asleep : Nearly every day Feeling Tired or Little Energy : Nearly every day Poor Appetite or Overeating : Several days Feeling Bad About Yourself : Not at all Trouble Concentrating : Several days Moving or Speaking Slowly : Several days Thoughts Better Off or Hurting Self : Not at all Difficulty at Work, Home, or Getting Along With Others : Not difficult at all Detailed Depression Screening Score : 9 Total Depression Screening Score : 15 FT AMB Depression Screening Result : Positive [2] Review of Systems PHQ Score Initial Depression Screen Score: 6 Detailed Depression Screen Score: 9 Total Depression Screen Score: 15 ROS - Provider CONSTITUTIONAL: Negative for growth problems, fatigue, unexplained fevers, and weight loss. EYES: Negative for apparent vision problems, eye drainage, and lazy eye. E/N/T: Negative for apparent hearing deficits, chronic nasal congestion, dental problems, and speech problems. CARDIOVASCULAR: Negative for chest pain, cyanotic spells, edema, and poor exercise tolerance. RESPIRATORY: Negative for chronic cough, dyspnea, exposure to tuberculosis, and wheezing. GASTROINTESTINAL: Negative for abdominal pain, constipation, diarrhea, feeding/nutritional problems, and vomiting. GENITOURINARY: Negative for dysuria, hematuria, difficulty voiding, or rashes/lesions of the external genitalia. MUSCULOSKELETAL: Negative for limb or joint pain, joint swelling, and gait abnormalities. INTEGUMENTARY: Negative for atopic dermatitis, atypical moles, pruritis, rashes, and skin lesions. NEUROLOGICAL: Negative for abnormal tone, developmental delays, syncope, headaches, and seizures. HEMATOLOGIC/LYMPHATI C: Negative for bleeding, excessive bruising, and lymphadenopathy. ENDOCRINE: Negative for abnormal growth or pubertal development, polyuria, and polydipsia. ALLERGIC/IMMUNOLOGIC : Negative for allergies, frequent illnesses, HIV exposure, and urticaria. PSYCHIATRIC: Depression and anxiety impro sierra Physical Exam Vitals & Measurements T: 36.2 ?C (Temporal Artery) HR: 78(Peripheral) RR: 16 BP: 100/62 HT: 164.0 cm HT: 164 cm WT: 60.5 kg WT: 60.5 kg BMI: 22.49 GENERAL: The patient is well developed, well nourished, in no apparent distress. NEUROLOGIC: Normal for age Cranial nerves: II intact; III intact; VII intact; Normal DTR's elicited in biceps, triceps, supinator, knee, and ankle jerk; Sensation: normal to touch and pinprick; vibration and proprioception senses intact; Normal coordination and cerebellar function; Psych: Oriented, easily talks about her issues - Much more talkative very much more social. Doing better. Believes medication is handling symptoms Assessment/Plan 1. Depression with anxiety (F41.8: Other specified anxiety disorders) Continue counseling Follow up in 2 weeks Orders: sertraline, 200 mg = 2 tab(s), Oral, Daily, # 60 tab(s), Refills(s) 0, Pharmacy: [facility], 164, cm, 07/15/20 8:16:00 EST, Height/Length Dosing, 60.5, kg, 07/15/20 8:16:00 EST, Weight Dosing Follow-up With When Contact Information KERI HOOKER, Toi Traylor In 2 weeks Additional Instructions: Recheck Depression and anxiety Problem List/Past Medical History Ongoing Depression with anxiety Dizziness Headache, classical migraine Historical Acute UTI Contact dermatitis due to metal Procedure/Surgical History Dental, Spider angioma of skin. Medications Non-Formulary Medication sertraline 100 mg Tab, 200 mg= 2 tab(s), Oral, Daily Allergies No Known Allergies No Known Medication Allergies Social History Alcohol Household alcohol concerns: No., 04/04/2019 Substance Abuse Household substance abuse concerns: No., 04/04/2019 Tobacco Never (less than 100 in lifetime) Tobacco Use:. Never Smokeless Tobacco Use:. Household tobacco concerns: No., 01/15/2020 Family History Allergies: Sister and Brother. Asthma: Father. Breast cancer: Grandparent. COPD: Grandpar (more content not included)... [facility] Ambulatory Clinical Summaryo n 06-28-2020 Ambulatory Clinical Summary {[id number]}CD:[id number] [facility] Pediatric Phone Visit - Tele healthon 06-28-2020 Pediatric Phone Visit - Telehealth Chief Complaint Patient via telephone visit with Dad for discussion of depression medication. Dad feels that medication isn't working well. Patient moods have gone downhill. HPI Staff This visit was conducted via phone communications from my office due to the restrictions of the COVID-19 pandemic. No physical exam was conducted due to audio only communication with the patient located at [address] [place] [address], with father. If it is determined that the patient should be evaluated in person, the patient will be directed to the appropriate clinic or venue. The patient or their guardian verbally consented to this visit. Phone time was 15 minutes discussing health issues with counseling and coordination of care. History of Present Illness Anxiety and Depression: The patient says she doing worse. The father also indicates she is doing worse. Appetite is improved. No suicidal ideology. The patient had 1 panic attack. The patient is seeing a counselor at [facility]. Dad indicates that the depression is worse. Mom has tested positive for COVID. Review of Systems ROS - Provider CONSTITUTIONAL: Negative for growth problems, fatigue, unexplained fevers, and weight loss. EYES: Negative for apparent vision problems, eye drainage, and lazy eye. E/N/T: Negative for apparent hearing deficits, chronic nasal congestion, dental problems, and speech problems. CARDIOVASCULAR: Negative for chest pain, cyanotic spells, edema, and poor exercise tolerance. RESPIRATORY: Negative for chronic cough, dyspnea, exposure to tuberculosis, and wheezing. GASTROINTESTINAL: Negative for abdominal pain, constipation, diarrhea, feeding/nutritional problems, and vomiting. GENITOURINARY: Negative for dysuria, hematuria, difficulty voiding, or rashes/lesions of the external genitalia. MUSCULOSKELETAL: Negative for limb or joint pain, joint swelling, and gait abnormalities. INTEGUMENTARY: Negative for atopic dermatitis, atypical moles, pruritis, rashes, and skin lesions. NEUROLOGICAL: Negative for abnormal tone, developmental delays, syncope, headaches, and seizures. HEMATOLOGIC/LYMPHATI C: Negative for bleeding, excessive bruising, and lymphadenopathy. ENDOCRINE: Negative for abnormal growth or pubertal development, polyuria, and polydipsia. ALLERGIC/IMMUNOLOGIC : Negative for allergies, frequent illnesses, HIV exposure, and urticaria. PSYCHIATRIC: Depression and anxiety Worse Assessment/Plan 1. Depression with anxiety (F41.8: Other specified anxiety disorders) Recommend increase in the Zoloft. This week the dose 1.5 tabs, then in 1 week 2 tabs per day of the 100 mg Follow up in 2 weeks in office Increase couseling Follow-up With When Contact Information Toi SAAVEDRA MD In 2 weeks Additional Instructions: Recheck Depression Problem List/Past Medical History Ongoing Depression with anxiety Dizziness Headache, classical migraine Historical Acute UTI Contact dermatitis due to metal Procedure/Surgical History Dental, Spider angioma of skin. Medications Non-Formulary Medication sertraline 100 mg Tab, See Instructions Allergies No Known Allergies No Known Medication Allergies Social History Alcohol Household alcohol concerns: No., 04/04/2019 Substance Abuse Household substance abuse concerns: No., 04/04/2019 Tobacco Never (less than 100 in lifetime) Tobacco Use:. Never Smokeless Tobacco Use:. Household tobacco concerns: No., 01/15/2020 Family History Allergies: Sister and Brother. Asthma: Father. Breast cancer: Grandparent. COPD: Grandparent. Diabetes mellitus type 1: Other Relationship. Diabetes mellitus type 2: Grandparent. Mitral valve disorder: Grandparent. Immunizations Vaccine Date Status meningococcal conjugate vaccine 04/25/2019 Given meningococcal group B vaccine 04/25/2019 Given influenza virus vaccine, inactivated 07/25/2018 Recorded meningococcal group B vaccine 07/25/2018 Recorded human papillomavirus vaccine 07/25/2018 Recorded human papillomavirus vaccine 04/12/2015 Recorded meningococcal conjugate vaccine 04/12/2015 Recorded hepatitis A adult vaccine 04/09/2014 Recorded influenza virus vaccine, inactivated 04/04/2013 Recorded hepatitis A adult vaccine 04/04/2013 Recorded diphtheria/pertussis , acel/tetanus adult 04/04/2013 Recorded influenza virus vaccine, inactivated 05/03/2012 Recorded diphtheria/pertussis , acel/tetanus ped 03/19/2008 Recorded measles/mumps/rubell a virus vaccine 03/19/2008 Recorded poliovirus vaccine, inactivated 03/19/2008 Recorded varicella virus vaccine 03/19/2008 Recorded diphtheria/pertussis , acel/tetanus ped 08/11/2004 Recorded influenza virus vaccine, inactivated 05/31/2004 Recorded measles/mumps/rubell a virus vaccine 04/22/2004 Recorded haemophilus b conjugate (HbOC) vaccine 04/22/2004 Recorded varicella virus vaccine 01/29/2004 Recorded pneumococcal 13-valent vaccine 01/29/2004 Recorded hepatitis B som (more content not included)... Normal [facility] Comment on above: Result Comment: Elec tronically Signed By: KERI HOOKER, Toi Traylor\.br\Date and Time Signed: 06/28/20 14:15 EST Chlam/GC/Trich,NAAon 09-29-2 020 C. trachomatis rRNA CECILIA+probe Ql (Unsp spec) Negative Invalid Interpretation Code Negative [facility] Comment on above: Performed By: #### 1 [id number] ####[facility] [address] [place] [address] N. gonorrhoeae rRNA CECILIA+probe Ql (Unsp spec) Negative Invalid Interpretation Code Negative [facility] Comment on above: Performed By: #### 1 [id number] ####[facility] [id number] [facility] [place] [address] T. vaginalis DNA CECILIA+probe Ql (Unsp spec) Negative Invalid Interpretation Code Negative [facility] Comment on above: Result Comment: Perf ormed at: =[facility] [place] [id number] MD Skye Burrell Performed By: #### 1 [id number] ####[facility] [address] [place] [address] Coding Summary.on 05-11-2020 Coding Summary. CODING DATE: 05/11/[address] [facility] STATUS: Home (Routine DC) PAYOR: [facility] ADMIT DX: REASON FOR VISIT DX: R30.0 Dysuria FINAL DX: PRINCIPAL: R30.0 Dysuria SECONDARY: PYMT PROC APC STAT DESCRIPTION DOCTOR NAME DATE NOTE: The code number assigned matches the documented diagnosis and / or procedure in the patient's chart. However, the narrative phrase printed from the coding software may appear abbreviated, or result in slightly different terminology. Coded By: Joann Hallman CphT Date Saved: 05/11/2020 03:50 pm Normal [facility] C Urineon 05-09-2020 Bacteria identified Cx Nom (U) Microbiology PROCEDURE: Urine Culture [R1] SOURCE: U CleanCatch BODY SITE: COLLECTED DATE/TIME: 05/07/2020 13:39 EDT RECEIVED DATE/TIME: 05/07/2020 19:30 EDT START DATE/TIME: 05/07/2020 19:30 EDT FREE TEXT SOURCE: NAHUM HOOKER, Mohan S NAHUM HOOKER, Mohan S FINAL REPORTS Final Report [] Verified Date/Time: 05/09/2020 08:47 EDT 5,000 cfu/ml Escherichia coli SUSCEPTIBILITY RESULTS LEGEND: S=Susceptible, N/R=Not Reported, Blank=Data not available, or drug not advisable or tested, I=Intermediate, ESBL=Extended spectrum beta-lactamase, R=Resistant, TFG=Thymidine-depend ent strain, JONNA=Beta-lactamase positive, JOSE ARMANDO=mcg/m;(mg/L), S*=Predicted susceptible interp, R*=Predicted resistant interp EC Antibiotic JOSE ARMANDO Dilutn JOSE ARMANDO Interp Amikacin <=16 S Ampicillin >16 R Ampicillin/ >16/8 R Sulbactam Aztreonam <=4 S Cefazolin <=2 S Cefepime <=2 S Cefotaxime <=2 Cefoxitin <=8 S Ceftazidime <=1 S Ceftazidime/ <=8 S Avibactam Ceftriaxone <=1 S Ciprofloxacin <=1 S Ertapenem <=0.5 S Gentamicin <=4 S Imipenem <=1 S Levofloxacin <=2 S Nitrofurantoin <=32 S Piperacillin/ <=16 S Tazobactam Tetracycline <=4 S Tigecycline <=2 S Tobramycin <=4 S Trimethoprim/ <=2/38 S Sulfa Performing Locations R1: This test was performed at: [facility], [address] [place] [address], [facility]- , , [facility] Comment on above: Performed By: #### [id number] ####[facility] [address] [place] [address] Ambulatory Clinical Summaryo n 05-07-2020 Ambulatory Clinical Summary {[id number]}CD:[id number] [facility] Patient Educationon 05-07-20 20 Patient Education Family Medicine Dysuria Dysuria is the medical term for pain with urination. There are many causes for dysuria, but urinary tract infection is the most common. If a urinalysis was performed it can show that there is a urinary tract infection. A urine culture confirms that you or your child is sick. You will need to follow up with a healthcare provider because: ? If a urine culture was done you will need to know the culture results and treatment recommendations. ? If the urine culture was positive, you or your child will need to be put on antibiotics or know if the antibiotics prescribed are the right antibiotics for your urinary tract infection. ? If the urine culture is negative (no urinary tract infection), then other causes may need to be explored or antibiotics need to be stopped. Today laboratory work may have been done and there does not seem to be an infection. If cultures were done they will take at least 24 to 48 hours to be completed. Today x-rays may have been taken and they read as normal. No cause can be found for the problems. The x-rays may be re-read by a radiologist and you will be contacted if additional findings are made. You or your child may have been put on medications to help with this problem until you can see your primary caregiver. If the problems get better, see your primary caregiver if the problems return. If you were given antibiotics (medications which kill germs), take all of the mediations as directed for the full course of treatment. If laboratory work was done, you need to find the results. Leave a telephone number where you can be reached. If this is not possible, make sure you find out how you are to get test results. HOME CARE INSTRUCTIONS ? Drink lots of fluids. For adults, drink eight, 8 ounce glasses of clear juice or water a day. For children, replace fluids as suggested by your caregiver. ? Empty the bladder often. Avoid holding urine for long periods of time. ? After a bowel movement, women should cleanse front to back, using each tissue only once. ? Empty your bladder before and after sexual intercourse. ? Take all the medicine given to you until it is gone. You may feel better in a few days, but TAKE ALL MEDICINE. ? Avoid caffeine, tea, alcohol and carbonated beverages, because they tend to irritate the bladder. ? In men, alcohol may irritate the prostate. ? Only take [id number] or prescription medicines for pain, discomfort, or fever as directed by your caregiver. ? If your caregiver has given you a follow-up appointment, it is very important to keep that appointment. Not keeping the appointment could result in a chronic or permanent injury, pain, and disability. If there is any problem keeping the appointment, you must call back to this facility for assistance. SEEK IMMEDIATE MEDICAL CARE IF: ? Back pain develops. ? A fever develops. ? There is nausea (feeling sick to your stomach) or vomiting (throwing up). ? Problems are no better with medications or are getting worse. MAKE SURE YOU: ? Understand these instructions. ? Will watch your condition. ? Will get help right away if you are not doing well or get worse. Document Released: 04/27/2005 Document Revised: 10/21/2012 Document Reviewed: 03/04/2009 ExitCare? Patient Information ?2013 [employer] [facility] Pediatrics Office/Clinic Not higinio 05-07-2020 Pediatrics Office/Clinic Note Chief Complaint Here for burning with urination and constant feeling of urinating. History of Present Illness Time of onset: yesterday dysuria specially terminal, and urgency. Urine yesterday was cloud and smelly, but today is more clear. Her last period was 10 days ago. She has been sexually active, last relationship was 2 days ago, non protective as there was no barrier method. Severity: mild frequency of symptom: first episode Associated symptoms: abdominal pain: no chest pain: no arthralgia: no headaches: no myalgia: no fever: no chills: no cough: no dyspnea: no orthopnea: no palpitation: no rash: no jaundice: no night sweats: no weight loss : no constipation: no diarrhea: no red blood stool: no black out/dizziness: no loss of consciousness: no paraesthesias: no dysuria: yes hematuria: no Review of Systems ROS - Provider CONSTITUTIONAL: Negative for growth problems, fatigue, unexplained fevers, and weight loss. EYES: Negative for apparent vision problems, eye drainage, and lazy eye. E/N/T: Negative for apparent hearing deficits, chronic nasal congestion, dental problems, and speech problems. CARDIOVASCULAR: Negative for chest pain, cyanotic spells, edema, and poor exercise tolerance. RESPIRATORY: Negative for chronic cough, dyspnea, exposure to tuberculosis, and wheezing. GASTROINTESTINAL: Negative for abdominal pain, constipation, diarrhea, feeding/nutritional problems, and vomiting. GENITOURINARY: Negative for hematuria, difficulty voiding, or rashes/lesions of the external genitalia. dysuria INTEGUMENTARY: Negative for atopic dermatitis, atypical moles, pruritis, rashes, and skin lesions. HEMATOLOGIC/LYMPHATI C: Negative for bleeding, excessive bruising, and lymphadenopathy. Physical Exam Vitals & Measurements T: 36.7 ?C (Temporal Artery) HR: 70(Peripheral) RR: 16 BP: 106/58 HT: 162.7 cm HT: 162.7 cm WT: 61.1 kg WT: 61.1 kg BMI: 23.08 GENERAL: The patient is well developed, well nourished, in no apparent distress. EYES: lids and conjunctiva are normal; pupils and irises are normal; funduscopic exam reveals red reflex present bilaterally. E/N/T: normal external auditory canals and tympanic membranes; Nose: normal nasal mucosa, septum, turbinates, and sinuses; Lips, Teeth and Gums: normal. Oropharynx: normal mucosa, palate, and posterior pharynx; RESPIRATORY: normal respiratory rate and pattern with no distress; normal breath sounds with no rales, rhonchi, wheezes or rubs; CARDIOVASCULAR: normal rate and rhythm without murmurs; normal S1 and S2 heart sounds with no S3, S4, rubs, or clicks. GASTROINTESTINAL: normal bowel sounds; no masses or tenderness; no organomegaly no abdominal or inguinal hernia; LYMPHATIC: no enlargement of cervical nodes; no axillary adenopathy; no inguinal adenopathy; SKIN: No ulcerations, lesions or rashes are noted. Assessment/Plan 1. Burning with urination (R30.0: Dysuria) - Increase fluids - control fever - cranberry juice - wipe front to back - do not hold urine - advised her to void after having Sex to prevent UTI will culture the urine and test it for GC/chlamydia will treat for urethritis with bactrim Ordered: Chlam/GC/Trich,CECILIA Urine Culture Urnls Dip Stick Auto w/o Microscopy POC 19611 Orders: sulfamethoxazole-tri methoprim, 2 tab(s), Oral, BID for 10 day(s), 40 tab(s), Refill(s) 0, [facility], 162.7, cm, 05/07/20 13:09:00 EDT, Height/Length Dosing, 61.1, kg, 05/07/20 13:09:00 EDT, Weight Dosing Follow-up With When Contact Information NAHUM HOOKER, Aml S Additional Instructions: keep next appointment Patient Education Dysuria Problem List/Past Medical History Ongoing Depression with anxiety Dizziness Headache, classical migraine Historical Acute UTI Contact dermatitis due to metal Procedure/Surgical History Dental, Spider angioma of skin. Medications Bactrim 400 mg-80 mg Tab, 2 tab(s), Oral, BID Non-Formulary Medication sertraline 100 mg Tab, 100 mg= 1 tab(s), Oral, Daily Allergies No Known Allergies No Known Medication Allergies Social History Alcohol Household alcohol concerns: No., 04/04/2019 Substance Abuse Household substance abuse concerns: No., 04/04/2019 Tobacco Never (less than 100 in lifetime) Tobacco Use:. Never Smokeless Tobacco Use:. Household tobacco concerns: No., 01/15/2020 Family History Allergies: Sister and Brother. Asthma: Father. Breast cancer: Grandparent. COPD: Grandparent. Diabetes mellitus type 1: Other Relationship. Diabetes mellitus type 2: Grandparent. Mitral valve disorder: Grandparent. Immunizations Vaccine Date Status meningococcal conjugate vaccine 04/25/2019 Given meningococcal group B vaccine 04/25/2019 Given influenza virus vaccine, inactivated 07/25/2018 Recorded meningococcal group B vaccine 07/25/2018 Recorded human papillomavirus vaccine 07/25/2018 Recorded human papillomavir (more content not included)... Normal [facility] Ambulatory Clinical Summaryo n 04-26-2020 Ambulatory Clinical Summary {[id number]}CD:[id number] Normal [facility] Patient Educationon 04-26-20 20 Patient Education Family Medicine Social Anxiety Disorder Almost everyone can feel some degree of discomfort in a given social situation. However, when you feel extreme fear of social encounters and it begins to interfere with your daily functioning, you have social anxiety disorder. There are two types of this disorder. ? If you have the first type, you are extremely anxious in only a few specific situations. For instance, you become anxious when answering a question out loud in class or presenting at work. ? If you have the second type, you experience overwhelming worry in most or all social experiences. This may include everything from going to a doctor's appointment, to eating in a restaurant, to entering a crowded room. When this disorder happens in very young children, it may be from a new licensing director or stranger that the child is not used to. In the very young it may show up as crying, tantrums, or withdrawal. Most adults with social anxiety were shy and timid as children. If left untreated, these adults may appear quiet and passive in social situations. They may be highly sensitive to the criticism and disapproval of others. They may have no close friends outside of first degree relatives. They may be fearful of saying or doing something foolish or becoming emotional in front of others. As a result of these fears, they may avoid most social encounters and select jobs and personal activities that allow them to isolate themselves from others. CAUSES This disorder can result from the combination of several factors. ? Your genetic makeup affects how sensitive you are and how much stress you can tolerate. ? How you were raised as a child also plays a part. Research suggests that children raised with overprotective parents, excessive expectations, overly critical parents, low assertiveness, and/or emotional insecurity have increased feelings of anxiety. ? A traumatic life event can also contribute to social anxiety; for example, being pointed out and shamed in public or being repeatedly bullied. SYMPTOMS This disorder is characterized by a fear of social situations. The anxiety is marked by: ? Apprehension. ? Nervousness. ? A feeling of unease, worry, or tension. Anxiety may also be reflected in: ? Blushing. ? Restlessness. ? Trembling. ? Shortness of breath. ? Sweating. ? Muscle tics and twitches. At higher levels of anxiety, there also may be: ? Increased heart rate. ? A rise in blood pressure. ? Rapid breathing. ? Muscle tension. Experiencing these uncomfortable symptoms often enough can cause a person to avoid social situations. This can cause many problems in the anxiety sufferer's life. TREATMENT There are many types of treatment available for social anxiety disorder. ? Group therapy allows you to see that you are not alone with these problems. ? Individual therapy helps you address anxiety issues with a caring professional. ? Relaxation techniques may be used as tools to help you overcome fear. ? Hypnosis may help change the way you think about social settings. ? Numerous medications are available that your caregiver can prescribe to help during a difficult time. Medications can be used for a brief period of time. The goal of this treatment is to help recondition you so that once you quit taking the medications, your anxiety will not return. PROGNOSIS Social anxiety disorder is a common problem that is very treatable. Individuals who participate in treatment have a very high success rate. When treated properly, the prognosis is very good to excellent. Document Released: 06/28/2006 Document Revised: 10/21/2012 Document Reviewed: 06/23/2008 ExitCare? Patient Information ?2013 [employer] [facility]. Normal [facility] Pediatrics Office/Clinic Not higinio 04-26-2020 Pediatrics Office/Clinic Note Chief Complaint Patient in office with Dad for Depression follow up. History of Present Illness Anxiety and Depression: The patient says she feels a bit better. Appetite is improved. No suicidal ideology. The patient had 1 panic attack. The patient is seeing a counselor at [facility] Review of Systems PHQ Score Initial Depression Screen Score: 2 ROS - Provider CONSTITUTIONAL: Negative for growth problems, fatigue, unexplained fevers, and weight loss. EYES: Negative for apparent vision problems, eye drainage, and lazy eye. E/N/T: Negative for apparent hearing deficits, chronic nasal congestion, dental problems, and speech problems. CARDIOVASCULAR: Negative for chest pain, cyanotic spells, edema, and poor exercise tolerance. RESPIRATORY: Negative for chronic cough, dyspnea, exposure to tuberculosis, and wheezing. GASTROINTESTINAL: Negative for abdominal pain, constipation, diarrhea, feeding/nutritional problems, and vomiting. GENITOURINARY: Negative for dysuria, hematuria, difficulty voiding, or rashes/lesions of the external genitalia. MUSCULOSKELETAL: Negative for limb or joint pain, joint swelling, and gait abnormalities. INTEGUMENTARY: Negative for atopic dermatitis, atypical moles, pruritis, rashes, and skin lesions. NEUROLOGICAL: Negative for abnormal tone, developmental delays, syncope, headaches, and seizures. HEMATOLOGIC/LYMPHATI C: Negative for bleeding, excessive bruising, and lymphadenopathy. ENDOCRINE: Negative for abnormal growth or pubertal development, polyuria, and polydipsia. ALLERGIC/IMMUNOLOGIC : Negative for allergies, frequent illnesses, HIV exposure, and urticaria. PSYCHIATRIC: Depression and anxiety Improved Physical Exam Vitals & Measurements T: 36.4 ?C (Temporal Artery) HR: 76(Peripheral) RR: 14 BP: 100/60 HT: 162 cm HT: 162.0 cm WT: 60.5 kg WT: 60.5 kg BMI: 23.05 GENERAL: The patient is well developed, well nourished, in no apparent distress. NEUROLOGIC: Normal for age Cranial nerves: II intact; III intact; VII intact; Normal DTR's elicited in biceps, triceps, supinator, knee, and ankle jerk; Sensation: normal to touch and pinprick; vibration and proprioception senses intact; Normal coordination and cerebellar function; Psych: Oriented, easily talks about her issues - Much more talkative very much more social. Doing better. Believes medication is handling symptoms Assessment/Plan 1. Depression with anxiety (F41.8: Other specified anxiety disorders) Continue Present dosage at 100 mg q d of Zoloft Follow up in 1 month Follow-up With When Contact Information KERI HOOKER, Toi Traylor In 1 month Additional Instructions: Recheck Anxiety Patient Education Social Anxiety Disorder Problem List/Past Medical History Ongoing Depression with anxiety Dizziness Headache, classical migraine Historical Acute UTI Contact dermatitis due to metal Procedure/Surgical History Dental, Spider angioma of skin. Medications sertraline 100 mg Tab, 100 mg= 1 tab(s), Oral, Daily Allergies No Known Allergies No Known Medication Allergies Social History Alcohol Household alcohol concerns: No., 04/04/2019 Substance Abuse Household substance abuse concerns: No., 04/04/2019 Tobacco Never (less than 100 in lifetime) Tobacco Use:. Never Smokeless Tobacco Use:. Household tobacco concerns: No., 01/15/2020 Family History Allergies: Sister and Brother. Asthma: Father. Breast cancer: Grandparent. COPD: Grandparent. Diabetes mellitus type 1: Other Relationship. Diabetes mellitus type 2: Grandparent. Mitral valve disorder: Grandparent. Immunizations Vaccine Date Status meningococcal conjugate vaccine 04/25/2019 Given meningococcal group B vaccine 04/25/2019 Given influenza virus vaccine, inactivated 07/25/2018 Recorded meningococcal group B vaccine 07/25/2018 Recorded human papillomavirus vaccine 07/25/2018 Recorded human papillomavirus vaccine 04/12/2015 Recorded meningococcal conjugate vaccine 04/12/2015 Recorded hepatitis A adult vaccine 04/09/2014 Recorded influenza virus vaccine, inactivated 04/04/2013 Recorded hepatitis A adult vaccine 04/04/2013 Recorded diphtheria/pertussis , acel/tetanus adult 04/04/2013 Recorded influenza virus vaccine, inactivated 05/03/2012 Recorded diphtheria/pertussis , acel/tetanus ped 03/19/2008 Recorded measles/mumps/rubell a virus vaccine 03/19/2008 Recorded poliovirus vaccine, inactivated 03/19/2008 Recorded varicella virus vaccine 03/19/2008 Recorded diphtheria/pertussis , acel/tetanus ped 08/11/2004 Recorded influenza virus vaccine, inactivated 05/31/2004 Recorded measles/mumps/rubell a virus vaccine 04/22/2004 Recorded haemophilus b conjugate (HbOC) vaccine 04/22/2004 Recorded varicella virus vaccine 01/29/2004 Recorded pneumococcal 13-valent vaccine 01/29/2004 Recorded hepatitis B adult vaccine 2003 Recorded diphtheria/pertussis , acel/tetanus ped 2003 Recorded poliov (more content not included)... Normal [facility] Ambulatory Clinical Summaryo n 03-24-2020 Ambulatory Clinical Summary {[id number]}CD:[id number] Normal [facility] Patient Education 03-22-20 Patient Education Family Medicine Social Anxiety Disorder Almost everyone can feel some degree of discomfort in a given social situation. However, when you feel extreme fear of social encounters and it begins to interfere with your daily functioning, you have social anxiety disorder. There are two types of this disorder. ? If you have the first type, you are extremely anxious in only a few specific situations. For instance, you become anxious when answering a question out loud in class or presenting at work. ? If you have the second type, you experience overwhelming worry in most or all social experiences. This may include everything from going to a doctor's appointment, to eating in a restaurant, to entering a crowded room. When this disorder happens in very young children, it may be from a new licensing director or stranger that the child is not used to. In the very young it may show up as crying, tantrums, or withdrawal. Most adults with social anxiety were shy and timid as children. If left untreated, these adults may appear quiet and passive in social situations. They may be highly sensitive to the criticism and disapproval of others. They may have no close friends outside of first degree relatives. They may be fearful of saying or doing something foolish or becoming emotional in front of others. As a result of these fears, they may avoid most social encounters and select jobs and personal activities that allow them to isolate themselves from others. CAUSES This disorder can result from the combination of several factors. ? Your genetic makeup affects how sensitive you are and how much stress you can tolerate. ? How you were raised as a child also plays a part. Research suggests that children raised with overprotective parents, excessive expectations, overly critical parents, low assertiveness, and/or emotional insecurity have increased feelings of anxiety. ? A traumatic life event can also contribute to social anxiety; for example, being pointed out and shamed in public or being repeatedly bullied. SYMPTOMS This disorder is characterized by a fear of social situations. The anxiety is marked by: ? Apprehension. ? Nervousness. ? A feeling of unease, worry, or tension. Anxiety may also be reflected in: ? Blushing. ? Restlessness. ? Trembling. ? Shortness of breath. ? Sweating. ? Muscle tics and twitches. At higher levels of anxiety, there also may be: ? Increased heart rate. ? A rise in blood pressure. ? Rapid breathing. ? Muscle tension. Experiencing these uncomfortable symptoms often enough can cause a person to avoid social situations. This can cause many problems in the anxiety sufferer's life. TREATMENT There are many types of treatment available for social anxiety disorder. ? Group therapy allows you to see that you are not alone with these problems. ? Individual therapy helps you address anxiety issues with a caring professional. ? Relaxation techniques may be used as tools to help you overcome fear. ? Hypnosis may help change the way you think about social settings. ? Numerous medications are available that your caregiver can prescribe to help during a difficult time. Medications can be used for a brief period of time. The goal of this treatment is to help recondition you so that once you quit taking the medications, your anxiety will not return. PROGNOSIS Social anxiety disorder is a common problem that is very treatable. Individuals who participate in treatment have a very high success rate. When treated properly, the prognosis is very good to excellent. Document Released: 06/28/2006 Document Revised: 10/21/2012 Document Reviewed: 06/23/2008 ExitCare? Patient Information ?2013 [facility], [facility]. [facility] Pediatrics Office/Clinic Not higinio 03-22-2020 Pediatrics Office/Clinic Note Chief Complaint Patient in office with Dad for Anxiety/Depression recheck. History of Present Illness Anxiety and Depression: The patient says she feels a bit better. Appetite is improved. No suicidal ideology The patient had 1 panic attack. The patient is seeing a counselor at [facility] Review of Systems PHQ Score Initial Depression Screen Score: 2 ROS - Provider CONSTITUTIONAL: Negative for growth problems, fatigue, unexplained fevers, and weight loss. EYES: Negative for apparent vision problems, eye drainage, and lazy eye. E/N/T: Negative for apparent hearing deficits, chronic nasal congestion, dental problems, and speech problems. CARDIOVASCULAR: Negative for chest pain, cyanotic spells, edema, and poor exercise tolerance. RESPIRATORY: Negative for chronic cough, dyspnea, exposure to tuberculosis, and wheezing. GASTROINTESTINAL: Negative for abdominal pain, constipation, diarrhea, feeding/nutritional problems, and vomiting. GENITOURINARY: Negative for dysuria, hematuria, difficulty voiding, or rashes/lesions of the external genitalia. MUSCULOSKELETAL: Negative for limb or joint pain, joint swelling, and gait abnormalities. INTEGUMENTARY: Negative for atopic dermatitis, atypical moles, pruritis, rashes, and skin lesions. NEUROLOGICAL: Negative for abnormal tone, developmental delays, syncope, headaches, and seizures. HEMATOLOGIC/LYMPHATI C: Negative for bleeding, excessive bruising, and lymphadenopathy. ENDOCRINE: Negative for abnormal growth or pubertal development, polyuria, and polydipsia. ALLERGIC/IMMUNOLOGIC : Negative for allergies, frequent illnesses, HIV exposure, and urticaria. PSYCHIATRIC: Depression and anxiety Improved Physical Exam Vitals & Measurements T: 36.4 ?C (Temporal Artery) HR: 100(Peripheral) RR: 16 BP: 112/66 HT: 163 cm WT: 63.9 kg BMI: 24.05 GENERAL: The patient is well developed, well nourished, in no apparent distress. NEUROLOGIC: Normal for age Cranial nerves: II intact; III intact; VII intact; Normal DTR's elicited in biceps, triceps, supinator, knee, and ankle jerk; Sensation: normal to touch and pinprick; vibration and proprioception senses intact; Normal coordination and cerebellar function; Psych: Oriented, easily talks about her issues - Much more talkative very much more social. Doing better Assessment/Plan 1. Depression with anxiety (F41.8: Other specified anxiety disorders) Orders: sertraline, 100 mg = 1 tab(s), Oral, Daily, # 30 tab(s), Refills(s) 0, Weight Measured Follow-up With When Contact Information Toi SAAVEDRA MD In 1 month Additional Instructions: Recheck anxiety and depression Patient Education Social Anxiety Disorder Problem List/Past Medical History Ongoing Depression with anxiety Dizziness Headache, classical migraine Historical Acute UTI Contact dermatitis due to metal Procedure/Surgical History Dental, Spider angioma of skin. Medications sertraline 100 mg Tab, 100 mg= 1 tab(s), Oral, Daily Allergies No Known Allergies No Known Medication Allergies Social History Alcohol Household alcohol concerns: No., 04/04/2019 Substance Abuse Household substance abuse concerns: No., 04/04/2019 Tobacco Never (less than 100 in lifetime) Tobacco Use:. Never Smokeless Tobacco Use:. Household tobacco concerns: No., 01/15/2020 Family History Allergies: Sister and Brother. Asthma: Father. Breast cancer: Grandparent. COPD: Grandparent. Diabetes mellitus type 1: Other Relationship. Diabetes mellitus type 2: Grandparent. Mitral valve disorder: Grandparent. Immunizations Vaccine Date Status meningococcal conjugate vaccine 04/25/2019 Given meningococcal group B vaccine 04/25/2019 Given influenza virus vaccine, inactivated 07/25/2018 Recorded meningococcal group B vaccine 07/25/2018 Recorded human papillomavirus vaccine 07/25/2018 Recorded human papillomavirus vaccine 04/12/2015 Recorded meningococcal conjugate vaccine 04/12/2015 Recorded hepatitis A adult vaccine 04/09/2014 Recorded influenza virus vaccine, inactivated 04/04/2013 Recorded hepatitis A adult vaccine 04/04/2013 Recorded diphtheria/pertussis , acel/tetanus adult 04/04/2013 Recorded influenza virus vaccine, inactivated 05/03/2012 Recorded diphtheria/pertussis , acel/tetanus ped 03/19/2008 Recorded measles/mumps/rubell a virus vaccine 03/19/2008 Recorded poliovirus vaccine, inactivated 03/19/2008 Recorded varicella virus vaccine 03/19/2008 Recorded diphtheria/pertussis , acel/tetanus ped 08/11/2004 Recorded influenza virus vaccine, inactivated 05/31/2004 Recorded measles/mumps/rubell a virus vaccine 04/22/2004 Recorded haemophilus b conjugate (HbOC) vaccine 04/22/2004 Recorded varicella virus vaccine 01/29/2004 Recorded pneumococcal 13-valent vaccine 01/29/2004 Recorded hepatitis B adult vaccine 2003 Recorded diphtheria/pertussis , acel/tetanus ped 2003 Recorded poliovirus vaccine, inactivate (more content not included)... Normal [facility] Ambulatory Clinical Summaryo n 02-23-2020 Ambulatory Clinical Summary {[id number] Normal [facility] Ambulatory Clinical Summaryo n 02-09-2020 Ambulatory Clinical Summary {[id number]}CD:[id number] Normal [facility] CHLAMYDIA/GONOCOCCUS CECILIA ( AB/URINE/PAPon 07-31-2019 Chlamydia trachomatis, CECILIA Negative Normal Negative [facility] Comment on above: Performed By: #### C T/NGNA #### [facility] [address] [place], [place] [address] Venita Dipika Neisseria gonorrhoeae, CECILIA Negative Normal Negative [facility] Comment on above: Performed By: #### C T/NGNA #### [facility] [address] [place], [place] [address] Venita Dipika CBC AUTO DIFFon 04-04-2019 Basophils (Bld) [#/Vol] 0.1 103/ul Normal 0.0-0.1 [facility] Comment on above: Performed By: #### C BC #### [facility] [address] [place], [place] [address] Venita Dipika Basophils/100 WBC (Bld) 0.6 % Normal 0.2-2.0 [facility] Comment on above: Performed By: #### C BC #### [facility] [address] [place], [place] [address] Venita Dipika Eosinophils (Bld) [#/Vol] 0.2 103/ul Normal 0.0-0.7 [facility] Comment on above: Performed By: #### C BC #### [facility] [address] [place], [place] [address] Venita Dipika Eosinophils/100 WBC (Bld) 2.1 % Normal 0.9-7.0 [facility] Comment on above: Performed By: #### C BC #### [facility] [address] [place] [address] Venita Dipika Erythrocyte distribution width (RBC) [Ratio] 13.0 % Normal 11.0-15.0 [facility] Comment on above: Performed By: #### C BC #### [facility] [address] [place] [address] Venita Dipika Hematocrit (Bld) [Volume fraction] 41.2 % Normal 36.0-48.0 [facility] Comment on above: Performed By: #### C BC #### [facility] [address] [place] [address] Venita Dipika Hemoglobin (Bld) [Mass/Vol] 13.2 g/dL Normal 12.0-16.0 [facility] Comment on above: Performed By: #### C BC #### [facility] [address] [place] [address] Venita Dipika IG # 0.01 10e3/ul Normal 0.00-0.03 [facility] Comment on above: Performed By: #### C BC #### [facility] [address] [place] [address] Venita Dipika IG % 0.1 % Normal 0.0-0.5 [facility] Comment on above: Performed By: #### C BC #### [facility] [address] [place] [address] Venita Dipika Lymphocytes (Bld) [#/Vol] 2.8 103/ul Normal 1.2-3.8 [facility] Comment on above: Performed By: #### C BC #### [facility] [address] [place] [address] Venita Dipika Lymphocytes/100 WBC (Bld) 32.0 % Normal 20.5-60.0 [facility] Comment on above: Performed By: #### C BC #### [facility] [address] [place] [address] Venita Dipika MANUAL DIFF REQ NO Normal [facility] Comment on above: Performed By: #### C BC #### [facility] [address] [place] [address] Venita Bar MCH (RBC) [Entitic mass] 27.3 pg Normal 26.7-34.0 [facility] Comment on above: Performed By: #### C BC #### [facility] [address] [place], [place] [address] Venitajeronimo Bar MCHC (RBC) [Mass/Vol] 32.0 g/dL Normal 29.9-35.2 [facility] Comment on above: Performed By: #### C BC #### [facility] [address] [place], [place] [address] Venita Bar MCV (RBC) [Entitic vol] 85.3 fL Normal 79.1-95.6 [facility] Comment on above: Performed By: #### C BC #### [facility] [address] [place], [place] [address] Venita Dipika Monocytes (Bld) [#/Vol] 0.5 103/ul Normal 0.3-0.8 [facility] Comment on above: Performed By: #### C BC #### [facility] [address] [place], [place] [address] Venita Dipika Monocytes/100 WBC (Bld) 5.2 % Normal 1.7-12.0 [facility] Comment on above: Performed By: #### C BC #### [facility] [address] [place], [place] [address] Venita Dipika Neutrophils (Bld) [#/Vol] 5.2 103/ul Normal 1.4-6.5 [facility] Comment on above: Performed By: #### C BC #### [facility] [address] [place], [place] [address] Venita Dipika Neutrophils/100 WBC (Bld) 60.0 % Normal 43.0-75.0 [facility] Comment on above: Performed By: #### C BC #### [facility] [address] [place], [place] [address] Venita Dipika Platelet mean volume (Bld) [Entitic vol] 11.3 fL Normal 9.5-13.5 [facility] Comment on above: Performed By: #### C BC #### [facility] [address] [place], [place] [address] Venita Bar Platelets (Bld) [#/Vol] 247 103/ul Normal 150-450 [facility] Comment on above: Performed By: #### C BC #### [facility] [address] [place], [place] [address] Venitajeronimo Bar RBC (Bld) [#/Vol] 4.83 106/ul Normal 3.40-5.30 [facility] Comment on above: Performed By: #### C BC #### [facility] [address] [place], [place] [address] Venitajeronimo Bar WBC (Bld) [#/Vol] 8.6 103/ul Normal 4.0-11.0 [facility] Comment on above: Performed By: #### C BC #### [facility] [address] [place], [place] [address] Venita Melgaren PROF 14(COMP METB)on 019 Albumin [Mass/Vol] 3.7 g/dL Normal 3.5-5.0 [facility] Comment on above: Performed By: #### C MP, TSH #### [facility] [address] [place], [place] [address] Venita Dipika Albumin/Globulin [Mass ratio] 0.9 {ratio} Normal [facility] Comment on above: Performed By: #### C MP, TSH #### [facility] [address] [place], [place] [address] Venita Dipika ALP [Catalytic activity/Vol] 112 U/L Normal 65-260 [facility] Comment on above: Performed By: #### C MP, TSH #### [facility] [address] [place], [place] [address] Venita Dipika ALT [Catalytic activity/Vol] 12 U/L Normal 9-52 [facility] Comment on above: Performed By: #### C MP, TSH #### [facility] [address] [address] Venita Dipika Anion gap [Moles/Vol] 13.2 mmol/L Normal [facility] Comment on above: Performed By: #### C MP, TSH #### [facility] [address] [place] [address] Venita Dipika AST [Catalytic activity/Vol] 14 U/L Normal 14-36 [facility] Comment on above: Performed By: #### C MP, TSH #### [facility] [address] [place] [address] Venita Dipika Bilirubin Ql (U) 0.2 mg/dL Normal 0.2-1.3 [facility] Comment on above: Performed By: #### C MP, TSH #### [facility] [address] [place] [address] Venita Dipika Calcium [Mass/Vol] 9.5 mg/dL Normal 8.4-10.2 [facility] Comment on above: Performed By: #### C MP, TSH #### [facility] [address] [place] [address] Venita Dipika Chloride [Moles/Vol] 104 mmol/L Normal 98-107 [facility] Comment on above: Performed By: #### C MP, TSH #### [facility] [address] [place] [address] Venita Dipika CO2 [Moles/Vol] 26.5 mmol/L Normal 22.0-30.0 [facility] Comment on above: Performed By: #### C MP, TSH #### [facility] [address] [place] [address] Venita Dipika Creatinine [Mass/Vol] 0.87 mg/dL Normal 0.52-1.04 [facility] Comment on above: Performed By: #### C MP, TSH #### [facility] [address] [place], [place] [address] Venita Dipika Globulin (S) [Mass/Vol] 4.0 g/dL Normal [facility] Comment on above: Performed By: #### C MP, TSH #### [facility] [address] [place], [place] [address] Venita Dipika Glucose [Mass/Vol] 88 mg/dL Normal 74-106 [facility] Comment on above: Performed By: #### C MP, TSH #### [facility] [address] [place] [address] Venita Dipika Potassium [Moles/Vol] 3.7 mmol/L Normal 3.4-5.0 [facility] Comment on above: Performed By: #### C MP, TSH #### [facility] [address] [place] [address] Venita Dipika Protein [Mass/Vol] 7.7 g/dL Normal 6.1-8.2 [facility] Comment on above: Performed By: #### C MP, TSH #### [facility] [address] [place] [address] Venita Dipika Sodium [Moles/Vol] 140 mmol/L Normal 137-145 [facility] Comment on above: Performed By: #### C MP, TSH #### [facility] [address] [place] [address] Venita Dipika Urea nitrogen [Mass/Vol] 11.0 mg/dL Normal 6.4-19.3 [facility] Comment on above: Performed By: #### C MP, TSH #### [facility] [address] [place] [address] Venita Dipika Urea nitrogen/Creatinin e [Mass ratio] 12.6 mg/mg Normal [facility] Comment on above: Performed By: #### C MP, TSH #### [facility] [address] [place] [address] Venita Dipika TSHon 04-04-2019 TSH Qn SEE BELOW Normal [facility] Comment on above: Result Comment: <0.3 4 UIU/ml HYPERTHYROID 0.34-5.60 UIU/ml EUTHYROID >5.60 UIU/ml HYPOTHYROID Performed By: #### C MP, TSH #### [facility] [address] [place] [address] Venita Dipika TSH Qn 0.659 uIU/mL Normal 0.430-3.750 [facility] Comment on above: Performed By: #### C MP, TSH #### [facility] [address] [place], [place] [address] Venita Bar Vital Signs Date Time Vital Sign Value Performing Clinician Facility 04-21-2025 08:53-0400 Body weight 78.36 kg Sergio Carlos Enrique DO Work Phone: [facility] 04-21-2025 08:53-0400 Diastolic blood pressure 78 mm[Hg] Sergio Carlos Enrique DO Work Phone: [facility] 04-21-2025 08:53-0400 Systolic blood pressure 110 mm[Hg] Sergio Carlos Enrique DO Work Phone: [facility] 06-03-2024 11:29-0400 Body weight 82.01 kg Sergio Carlos Enrique DO Work Phone: [facility] 06-03-2024 11:29-0400 Diastolic blood pressure 72 mm[Hg] Sergio Carlos Enrique DO Work Phone: [facility] 06-03-2024 11:29-0400 Systolic blood pressure 110 mm[Hg] Sergio Carlos Enrique DO Work Phone: [facility] 05-06-2024 09:35-0400 Body weight 80.8 kg Sergio Carlos Enrique DO Work Phone: [facility] 05-06-2024 09:35-0400 Diastolic blood pressure 76 mm[Hg] Sergio Carlos Enrique DO Work Phone: [facility] 05-06-2024 09:35-0400 Systolic blood pressure 112 mm[Hg] Sergio Carlos Enrique DO Work Phone: [facility] 04-17-2024 09:29-0400 Body weight 81.19 kg Mar WILLIAM Work Phone: [facility] 04-17-2024 09:29-0400 Diastolic blood pressure 72 mm[Hg] Mar WILLIAM Work Phone: [facility] 04-17-2024 09:29-0400 Systolic blood pressure 118 mm[Hg] Mar WILLIAM Work Phone: [facility] 03-11-2024 15:20-0400 Body height 162.56 cm [facility] 03-11-2024 15:20-0400 Body mass index (BMI) [Ratio] 30.9 kg/m2 [facility] 03-11-2024 15:20-0400 Body temperature 98.6 [degF] [facility] 03-11-2024 15:20-0400 Body weight 81.64 kg [facility] 03-11-2024 15:20-0400 Heart rate 86 /min [facility] 03-11-2024 15:20-0400 Respiratory rate 18 /min [facility] 03-11-2024 15:20-0400 SaO2% (BldA) [Mass fraction] 99 % [facility] 02-02-2022 13:35-0400 Body height 162.56 cm Bekah Cain Other [facility] [employer] Other 02-02-2022 13:35-0400 Body mass index (BMI) [Ratio] 29.01 kg/m2 Bekah Cain Other [employer] Other 02-02-2022 13:35-0400 Body temperature 98.2 [degF] Bekah Cain Other [employer] Other 02-02-2022 13:35-0400 Body weight 76.66 kg Bekah Cain Other [employer] Other 02-02-2022 13:35-0400 Respiratory rate 18 /min Bekah Cain Other [employer] Other 02-02-2022 13:35-0400 SaO2% (BldA) [Mass fraction] 98 % Bekah Cain Other [employer] Other Encounters Encounter Date Encounter Type Care Provider Facility Start: 04-21-2025 End: 04-21-2025 Bamboo flowsheet Sergio Carlos Enrique DO Work Phone: [facility] Start: 04-21-2025 End: 04-21-2025 Bamboo flowsheet Sergio Carlos Enrique DO Work Phone: [facility] Start: 04-21-2025 End: 04-21-2025 Patient encounter procedure Sergio Carlos Enrique DO Work Phone: [facility] Start: 04-21-2025 End: 04-21-2025 Periodic preventive med est patient 18-39 yrs Sergio Carlos Enrique DO Work Phone: [facility] Comment on above: Well woman exam with routine gynecological exam Start: 06-03-2024 End: 06-03-2024 Bamboo flowsheet Sergio Carlos Enrique DO Work Phone: [facility] Start: 06-03-2024 End: 06-04-2024 Bamboo flowsheet Sergio Carlos Enrique DO Work Phone: [facility] Start: 06-03-2024 End: 06-04-2024 External Result Encounter Sergio Carlos Enrique DO Work Phone: [facility] Unsolicited Start: 06-03-2024 End: 06-03-2024 Office outpatient visit 15 minutes Sergio Carlos Enrique DO Work Phone: [facility] Comment on above: Intrauterine device surveillance; Vaginal discharge Start: 06-03-2024 End: 06-03-2024 ambulatory SERGIO CARLOS ENRIQUE Not Available Start: 05-06-2024 End: 05-06-2024 Patient encounter procedure Sergio Carlos Enrique DO Work Phone: [facility] Comment on above: Encounter for IUD in sertion Start: 05-06-2024 End: 05-06-2024 ambulatory SERGIO CARLOS ENRIQUE Not Available Start: 04-17-2024 End: 04-17-2024 Bamboo flowsheet Mar WILLIAM Work Phone: [facility] Start: 04-17-2024 End: 04-23-2024 Bamboo flowsheet Mar WILLIAM Work Phone: [facility] Start: 04-17-2024 End: 04-23-2024 Clinisync Result Encounter Mar WILLIAM Work Phone: [facility] Unsolicited Start: 04-17-2024 End: 04-17-2024 Patient encounter procedure Mar WILLIAM Work Phone: [facility] Start: 04-17-2024 End: 04-17-2024 Periodic preventive med est patient 18-39 yrs Mar WILLIAM Work Phone: [facility] Comment on above: Well woman exam with routine gynecological exam Start: 04-17-2024 End: 04-17-2024 ambulatory MAR ENCISO Not Available Start: 03-11-2024 End: 03-11-2024 ambulatory [facility] Work Phone: Start: 03-11-2024 End: 03-11-2024 Patient encounter procedure [facility] Physician [facility] Work Phone: Start: 02-04-2022 End: 02-04-2022 ambulatory Bekah Cain Other [employer] Other Start: 02-04-2022 Telephone encounter Bekah Cain [facility] Start: 02-02-2022 End: 02-02-2022 ambulatory Bekah Cain Other [employer] Other Start: 02-02-2022 Office outpatient vi sit 15 minutes Bekah Cain [facility] Start: 07-28-2019 End: 07-28-2019 Patient encounter procedure BOBBY NOLAN Facility:[facility] Start: 04-17-2019 End: 04-18-2019 Patient encounter procedure MOHAN SIDHU Facility:[facility] Start: 04-04-2019 End: 04-05-2019 Patient encounter procedure AMY RHOADES Facility:[facility] Procedures Date Procedure Procedure Detail Performing Clinician Start: 06-03-2024 URETHRITIS/DISCHARGE PLUS VAGINITIS (HTRX) Sergio Carlos Enrique DO Work Phone: Start: 05-06-2024 IUD INSERTION Sergio Dianna io DO Work Phone: Start: 05-06-2024 Urine test visual color cmprsn meths Sergio Carlos Enrique DO Work Phone: Start: 04-17-2024 IGP,APTIMA HPV,AGE GDLN Mar WILLIAM Work Phone: Plan of Treatment Date Care Activity Detail Author Start: 04-27-2026 End: 04-27-2026 Patient encounter procedure 04/27/2026 9:00 AM EDT Procedure Visit [facility] [address] [facility] [address] Sergio Monaco, DO [address], [place] [id number] [facility] Start: 04-21-2025 End: 04-21-2025 Patient encounter procedure [facility] Comment on above: Arrived Start: 06-03-2024 End: 06-03-2024 Patient encounter procedure [facility] Comment on above: Arrived Start: 05-06-2024 End: 05-06-2024 Patient encounter procedure 05/06/2024 9:30 AM EDT Procedure Visit [facility] [address] [place] [id number] Sergio Monaco DO [address] [place] [address] [facility] Start: 04-17-2024 End: 04-17-2024 Patient encounter procedure 04/17/2024 9:00 AM EDT Office Visit [facility] [address] [place] [address] Mar Enciso PA [address] [place], [place] [id number] Arrived [facility] Comment on above: Arrived CHLAMYDIA TRACHOMATI S (GENITO/STI) CHLAMYDIA TRACHOMATIS (GENITO/STI) Lab Routine Vaginal discharge Ordered: 06/03/2024 [facility] Comment on above: Ordered: 06/03/2024 Cytology Cervical or vaginal smear or scraping study Pap Smear Pathology and Cytology Routine Well woman exam with routine gynecological exam Ordered: 04/17/2024 [facility] Work Phone: Comment on above: Ordered: 04/17/2024 Cytology Cervical or vaginal smear or scraping study Pap Smear Pathology and Cytology Routine Well woman exam with routine gynecological exam Ordered: 04/21/2025 [facility] Work Phone: Comment on above: Ordered: 04/21/2025 Neisseria gonorrhoea e DNA [Presence] in Unspecified specimen by CECILIA with probe detection Neisseria gonorrhea DNA probe, direct Lab Routine Vaginal discharge Ordered: 06/03/2024 [facility] Comment on above: Ordered: 06/03/2024 SURESWAB(R) ADVANCED VAGINITIS PLUS, TMA SURESWAB(R) ADVANCED VAGINITIS PLUS, TMA Pathology and Cytology Routine Vaginal discharge Ordered: 06/03/2024 [facility] Work Phone: Comment on above: Ordered: 06/03/2024 Payers Date Payer Category Payer [facility] [[email or web address]] BCBS [id number] 2022 Unknown BCBS BCBS [id number] [id number] 2022-Present [phone] [address] [place] [address] [id number] 2022 Unknown [id number] 2003 Unknown [id number] 2003 Unknown [id number] 2003 Unknown [id number] 1978 Unknown [id number] 1978 Unknown [id number] 1978 Unknown [id number] 1959 Unknown [id number] Unknown [id number] Social History Date Type Detail Facility Sex Assigned At [employer] Other Start: 03-11-2024 Tobacco smoking status DCIS Never smoked tobacco (finding) [facility] Start: 2003 Sex Assigned At Female F [facility] Tobacco smoking status [facility] Tobacco smoking consumption unknown [facility] Start: 2003 Sex assigned at Not on file [facility] Clinical Notes 02-02-2022 to 04-21-2025 Dipika Callahan LPN - 04/21/2025 9:00 AM Carlito Callahan LPN - 06/03/2024 11:20 AM Carlito Callahan LPN - 05/06/2024 9:30 AM STEWART Sykes - 04/17/2024 9:00 AM EDT Note Date & Type Note Facility 04-21-2025 History of Presen t illness Narrative Reason for Appointment: Patient ID: Shalonda Lynne is a 20 y.o. female who presents for Well Women Visit Patient presents today for Annual Exam. MEDICATIONS No current outpatient medications ALLERGIES Allergies Allergen Reactions Nickel Rash PROBLEMS Active Ambulatory Problems Diagnosis Date Noted No Active Ambulatory Problems Resolved Ambulatory Problems Diagnosis Date Noted No Resolved Ambulatory Problems No Additional Past Medical History HISTORY PAST MEDICAL HISTORY SOCIAL HISTORY History reviewed. No pertinent past medical history. Social History Tobacco Use Smoking status: Not on file Smokeless tobacco: Not on file Substance Use Topics Alcohol use: Not on file Drug use: Not on file FAMILY HISTORY No family history on file. SURGICAL HISTORY History reviewed. No pertinent surgical history. REVIEW OF SYSTEMS Review of Systems: Review of Systems Constitutional: Negative. HENT: Negative. Eyes: Negative. Respiratory: Negative. Cardiovascular: Negative. Gastrointestinal: Negative. Genitourinary: Negative. Musculoskeletal: Negative. Skin: Negative. Neurological: Negative. All other systems reviewed and are negative. Hematological: Negative. Endocrine: Negative. Allergic/Immunologic: Negative. OBJECTIVE Objective: Physical Exam Constitutional: Appearance: Normal appearance. She is well-developed. Genitourinary: Vulva normal. Breasts: Breasts are soft. Right: Normal. Left: Normal. Cardiovascular: Rate and Rhythm: Normal rate and regular rhythm. Pulmonary: Effort: Pulmonary effort is normal. Breath sounds: Normal breath sounds. Abdominal: General: Bowel sounds are normal. There is no distension. Palpations: Abdomen is soft. Tenderness: There is no abdominal tenderness. There is no guarding or rebound. Musculoskeletal: General: No swelling. Normal range of motion. Right lower leg: No edema. Left lower leg: No edema. Neurological: Mental Status: She is alert and oriented to person, place, and time. Skin: General: Skin is warm and dry. Psychiatric: Mood and Affect: Mood normal. Behavior: Behavior normal. Vitals and nursing note reviewed. Exam conducted with a solid fiber paster operator present. Vitals: Estimated body mass index is 23.62 kg/m as calculated from the following: Height as of 07/15/20: 5' 4 . Weight as of 07/15/20: 137 lb 9.6 oz. BP: 110/78 No LMP recorded (lmp unknown). (Menstrual status: IUD). ASSESSMENT & PLAN ICD-10-CM 1. Well woman exam with routine gynecological exam Z01.419 Pap Smear No orders of the defined types were placed in this encounter. Annual Wellness Exam: Patient presents today for routine annual exam. Patient states she has no current complaints. Patients vitals were reviewed and within normal limits. Growth and development is noted to be appropriate for age. Menstrual history is noted to be regular with no concerns reported spotting on and off with IUD. No mental health concerns was expressed. Pap Smear: Speculum was inserted into the vagina and pap was obtained without difficulty. No HPV testing was performed per age guideline. Patient was advised that pap results could take anywhere from 7 to 10 days to receive and our office will reach out to the patient with those once we have them. Patient can also view results via [employer]. I reinforced importance of condom use for STI prevention. Patient declined cultures to be performed with today's visit. Breast Exam: Upon examination, clinical breast exam was noted to be normal. Patient was counseled on breast self-awareness, including the importance of knowing what is normal for her own breasts and promptly reporting any changes such as new lumps, skin dimpling, nipple discharge, or pain. Screening mammogram recommended annually beginning at age 40 or earlier if risk factors are present. Discussed signs and symptoms of breast cancer and when to seek medical attention. Answered all patient questions. Contraceptive Counseling (if applicable): Patient is currently using IUD as a form of contraceptive. Follow Up: Patient is to return to our office in one year for annual exam unless needed otherwise. Documented by Dipika Callahan LPN on behalf of: Sergio Monaco DO documented in this encounter [facility] 06-03-2024 History of Presen t illness Narrative Reason for Appointment: Patient ID: Shalonda Lynne is a 19 y.o. female who presents for string check Patient presents today for String Check Follow Up appointment. MEDICATIONS No current outpatient medications ALLERGIES Allergies Allergen Reactions Nickel Rash PROBLEMS Active Ambulatory Problems Diagnosis Date Noted No Active Ambulatory Problems Resolved Ambulatory Problems Diagnosis Date Noted No Resolved Ambulatory Problems No Additional Past Medical History HISTORY PAST MEDICAL HISTORY SOCIAL HISTORY History reviewed. No pertinent past medical history. Social History Tobacco Use Smoking status: Not on file Smokeless tobacco: Not on file Substance Use Topics Alcohol use: Not on file Drug use: Not on file FAMILY HISTORY No family history on file. SURGICAL HISTORY History reviewed. No pertinent surgical history. REVIEW OF SYSTEMS Review of Systems: Review of Systems Constitutional: Negative. HENT: Negative. Eyes: Negative. Respiratory: Negative. Cardiovascular: Negative. Gastrointestinal: Negative. Genitourinary: Negative. Musculoskeletal: Negative. Skin: Negative. Neurological: Negative. All other systems reviewed and are negative. Hematological: Negative. Endocrine: Negative. Allergic/Immunologic: Negative. OBJECTIVE Objective: Physical Exam Constitutional: Appearance: Normal appearance. She is well-developed. Genitourinary: Vulva normal. Cardiovascular: Rate and Rhythm: Normal rate and regular rhythm. Pulmonary: Effort: Pulmonary effort is normal. Breath sounds: Normal breath sounds. Abdominal: General: Bowel sounds are normal. There is no distension. Palpations: Abdomen is soft. Tenderness: There is no abdominal tenderness. There is no guarding or rebound. Musculoskeletal: General: No swelling. Normal range of motion. Right lower leg: No edema. Left lower leg: No edema. Neurological: Mental Status: She is alert and oriented to person, place, and time. Skin: General: Skin is warm and dry. Psychiatric: Mood and Affect: Mood normal. Behavior: Behavior normal. Vitals and nursing note reviewed. Exam conducted with a solid fiber paster operator present. Vitals: Estimated body mass index is 23.62 kg/m as calculated from the following: Height as of 07/15/20: 5' 4 . Weight as of 07/15/20: 137 lb 9.6 oz. BP: 110/72 No LMP recorded. ASSESSMENT & PLAN ICD-10-CM 1. Intrauterine device surveillance Z30.431 IUD String Check: Patient is doing well but has some complaints of bleeding and cramping following IUD placement. Patient presents today for IUD string check. Strings were visualized and are noted to be intact. Cultures obtained d/t vaginal discharge Follow Up: Patient is to return to the office for annual exam unless needed otherwise. Documented by Dipika Callahan LPN on behalf of: Sergio Monaco DO documented in this encounter [facility] 05-06-2024 History of Presen t illness Narrative Associated Order(s): IUD Insertion Post-Procedure Diagnose(s): Encounter for IUD insertion Reason for Appointment: Patient ID: Shalonda Lynne is a 19 y.o. female who presents for Mirena insertion Patient presents today for a IUD Insertion appointment. MEDICATIONS Current Outpatient Medications Medication Instructions norethindrone ac-eth estradio (Shruthi .01/09) 1.5-30 MG-MCG tablet tablet 1 tablet ALLERGIES Allergies Allergen Reactions Octacosanol Other Reaction(s): Unknown Nickel Rash SURGICAL HISTORY History reviewed. No pertinent surgical history. REVIEW OF SYSTEMS Review of Systems: Review of Systems Constitutional: Negative. HENT: Negative. Eyes: Negative. Respiratory: Negative. Cardiovascular: Negative. Gastrointestinal: Negative. Genitourinary: Negative. Musculoskeletal: Negative. Skin: Negative. Neurological: Negative. All other systems reviewed and are negative. Hematological: Negative. Endocrine: Negative. Allergic/Immunologic: Negative. OBJECTIVE Objective: Physical Exam Constitutional: Appearance: Normal appearance. She is well-developed. Genitourinary: Vulva normal. Cardiovascular: Rate and Rhythm: Normal rate and regular rhythm. Pulmonary: Effort: Pulmonary effort is normal. Breath sounds: Normal breath sounds. Abdominal: General: Bowel sounds are normal. There is no distension. Palpations: Abdomen is soft. Tenderness: There is no abdominal tenderness. There is no guarding or rebound. Musculoskeletal: General: No swelling. Normal range of motion. Right lower leg: No edema. Left lower leg: No edema. Neurological: Mental Status: She is alert and oriented to person, place, and time. Skin: General: Skin is warm and dry. Psychiatric: Mood and Affect: Mood normal. Behavior: Behavior normal. Vitals and nursing note reviewed. Exam conducted with a solid fiber paster operator present. Vitals: Estimated body mass index is 23.62 kg/m as calculated from the following: Height as of 07/15/20: 5' 4 . Weight as of 07/15/20: 137 lb 9.6 oz. BP: 112/76 Patient's last menstrual period was 03/17/2024 (approximate). ASSESSMENT & PLAN Assessment/Plan Encounter Diagnosis: ICD-10-CM 1. Encounter for IUD insertion Z30.430 Levonorgestrel intrauterine device 52 mg POCT , urine manually resulted IUD Insertion Date/Time: 05/06/2024 10:04 AM Performed by: Sergio Monaco DO Authorized by: Sergio Monaco DO Consent: Consent obtained: Written Consent given by: Patient Procedure risks and benefits discussed: yes Patient questions answered: yes Patient agrees, verbalizes understanding, and wants to proceed: yes Educational handouts given: yes Instructions and paperwork completed: yes Crosby protocol: Patient states understanding of procedure being performed: yes Relevant documents present and verified: yes Test results available and properly labeled: yes Imaging studies available: yes Required blood products, implants, devices, and special equipment available: yes Procedure: Pelvic exam performed: yes Negative GC/chlamydia test: no Negative urine test: yes Negative serum test: no Cervix cleaned and prepped: yes Speculum placed in vagina: yes Tenaculum applied to cervix: yes Uterus sounded: yes IUD inserted with no complications: yes IUD type: Mirena Strings trimmed: yes Post-procedure: Patient tolerated procedure well: yes Patient will follow up after next period: no Comments: IUD Insertion: Patient presents today for an IUD Insertion. Patient is having a Mirena placed and written consent was obtained. Patient was placed in the dorsal lithotomy position with feet in stirrups. A sterile speculum ws placed into the vagina and the cervix was visualized. Cervix was cleansed with betadine and the anterior lip was grasped with ring forceps. Uterus was then gently sounded. New IUD device was gently advanced through the endocervix, toward te uterine fundus. The IUD was then deployed as device was gently removed from the uterus. The IUD strings were cut to the length from external os. All instruments were removed from the vagina. Post-procedure instructions given. All of patients questions were answered and she expressed understanding. Advised to call interim with any questions or concerns. Follow Up: Patient is to return to the office in 4 weeks for a string check. Documented by Dipika Callahan LPN on behalf of: Sergio Monaco DO documented in this encounter [facility] 04-17-[facility]24 History of Presen t illness Narrative Reason for Appointment: Patient ID: Shalonda Swiger is a 19 y.o. female who presents for Gynecologic Exam Patient presents today for Annual Exam. MEDICATIONS Current Outpatient Medications Medication Instructions norethindrone-ethinyl estradiol-iron ([place] 1.530) 1.5-30 MG-MCG tablet 1 tablet, Oral, Daily sertraline (Zoloft) 100 MG tablet Every 12 hours ALLERGIES Allergies Allergen Reactions Nickel Rash PROBLEMS Active Ambulatory Problems Diagnosis Date Noted No Active Ambulatory Problems Resolved Ambulatory Problems Diagnosis Date Noted No Resolved Ambulatory Problems No Additional Past Medical History HISTORY PAST MEDICAL HISTORY SOCIAL HISTORY No past medical history on file. Social History Tobacco Use Smoking status: Not on file Smokeless tobacco: Not on file Substance Use Topics Alcohol use: Not on file Drug use: Not on file FAMILY HISTORY No family history on file. SURGICAL HISTORY History reviewed. No pertinent surgical history. REVIEW OF SYSTEMS Review of Systems: Review of Systems Constitutional: Negative. HENT: Negative. Eyes: Negative. Respiratory: Negative. Cardiovascular: Negative. Gastrointestinal: Negative. Genitourinary: Negative. Musculoskeletal: Negative. Skin: Negative. Neurological: Negative. All other systems reviewed and are negative. Hematological: Negative. Endocrine: Negative. Allergic/Immunologic: Negative. OBJECTIVE Objective: Physical Exam Constitutional: Appearance: Normal appearance. She is well-developed. Genitourinary: Vulva normal. Vaginal discharge present. Vaginal exam comments: menstrating. Right Adnexa: not tender and no mass present. Left Adnexa: not tender and no mass present. No cervical discharge. Breasts: Breasts are soft. Right: Normal. Left: Normal. HENT: Head: Normocephalic. Nose: Nose normal. Mouth/Throat: Mouth: Mucous membranes are moist. Cardiovascular: Rate and Rhythm: Normal rate and regular rhythm. Pulmonary: Effort: Pulmonary effort is normal. Breath sounds: Normal breath sounds. Abdominal: General: Bowel sounds are normal. There is no distension. Palpations: Abdomen is soft. Tenderness: There is no abdominal tenderness. There is no guarding or rebound. Musculoskeletal: General: No swelling. Normal range of motion. Cervical back: Normal range of motion. Right lower leg: No edema. Left lower leg: No edema. Neurological: General: No focal deficit present. Mental Status: She is alert and oriented to person, place, and time. Skin: General: Skin is warm and dry. Psychiatric: Mood and Affect: Mood normal. Behavior: Behavior normal. Vitals and nursing note reviewed. Exam conducted with a solid fiber paster operator present. Vitals: Estimated body mass index is 23.62 kg/m as calculated from the following: Height as of 07/15/20: 5' 4 . Weight as of 07/15/20: 137 lb 9.6 oz. BP: 118/72 Patient's last menstrual period was 03/17/2024 (approximate). ASSESSMENT & PLAN ICD-10-CM 1. Well woman exam with routine gynecological exam Z01.419 Pap Smear Pt present for her first pap smear. Pt is currently on oral b/c and is interested in the Mirena and would like to discuss it w/Mar Enciso. Pap was preformed and collected by Mar Enciso. Pt was given reading information about the IUD and pt will schedule her appt at a later date. Documented by Cici Charlton MA on behalf of: STEWART Walker documented in this encounter [facility] 02-02-2022 Evaluation note Encounter Date Diagnosis Assessment Notes Jan, Contact with and (suspected) exposure to covid-19 (ICD-10 - Z20.822) Jan, Viral bronchitis (ICD-10 - J20.8) Advised patient that rapid COVID antigen test and Strep test was negative today. Advised patient that all lung meraz were clear today on exam. Patient very argumentative about this, stating that she knows she has crackles and rhochi. Advised that I can send her in rx of Medrol dose pack to use as directed, take with food and plenty of ater, finish entire course. Patient requested work note to miss x 4 days. Advised that I will give her note x 2 days, that steroid should help her symptoms at 48 hour jaden. If no improvement may extend note x 1 more day. Encouraged supportive care as directed, increase fluids and rest, Tylenol as directed, rx of [place] as directed, cool mist humidifier, throat lozenges. Discussed infection control practices such as good hand washing and mask wearing. Patient to follow up with PCP if symptoms persist or worsen despite treatment. Immediate eval for SOB, difficulty, chest pain, fevers that do not break with antipyretic or any other concerning symptoms as reviewed on patient education handout. Patient verbalizes understanding and is agreeable to treatment plan. Patient left in stable condition Jan, Other Additional time spent conducting pre-visit phone call, screening for symptoms, instructions on social distancing, application and removal of PPE, and cleaning of examination room, equipment and supplies was performed. Patient education given for testing methodology and results. Patient care instructions given in writing by [facility] Care At Home document. [employer] Other Evaluation noteNo InformationNort [employer] Other Evaluation noteNo assessment information available [facility] Work Phone: Evaluation note* Diagnosis Intrauterine device surveillance Vaginal discharge Leukorrhea, not specified as infective documented in this encounter [facility]* Diagnosis Well woman exam with routine gynecological exam Routine gynecological examination documented in this encounter [facility]* Diagnosis Encounter for IUD insertion Insertion of intrauterine contraceptive device documented [facility] encounter [facility] Healthcare[facility] general Narrative - Reported* Type Description Date Surgical History tooth extraction Surgical History hemangioma removed from face [employer] Other Summary Purpose Family History No Family History Records FoundNo Family History Records FoundNo Family History Records Found Advance Directives Advance Directive Response Recorded Date/ Time Advance Directives No March 11 3:10pm Chief Complaint and Reason for Visit Chief Complaint Infected ear piercin g Additional Source Comments INFORMATION SOURCE (unrecogn ized section and content) DATE CREATED AUTHOR 07/31/2019 [facility] DATE CREATED AUTHOR AUTHOR'S ORGANIZ ATION 02/01/2021 [facility] DATE CREATED AUTHOR AUTHOR'S ORGANIZ ATION 06/05/2024 [facility] EPIC REASON FOR VISIT (unrecogniz ed section and content) Reason Comments string check Reason Comments Gynecologic Exam Reason Comments Mirena insertion Reason Comments Well Women Visit Care Teams (unrecognized sec tion and content) Team Status: Active Member Role Status Dates PHYSICIAN NO FAMILY Primary Care Provider Active Team Status: Inactive Member Role Status Dates PHYSICIAN NO FAMILY Primary Care Provider Active Start: March 11, 2024 End: March 11, 2024 Yudi Preciado APRN Attending Provider Active Start: March 11, 2024 End: March 11, 2024 Goals (unrecognized section and content) Goals may be documented in a n alternate section FOR RECORDS PERTAINING TO PATIENTS WHO ARE OR HAVE BEEN ENROLLED IN A CHEMICAL DEPENDENCY/SUBSTANCEABUSE PROGRAM, SOME INFORMATION MAY BE OMITTED. This clinical summary was aggregated from multiple sources. Caution should be exercised in using it in the provision of clinical care. This summary normalizes information from multiple sources, and as a consequence, information in this document may materially change the coding, format and clinical context of patient data. In addition, data may be omitted in some cases. CLINICAL DECISIONS SHOULD BE BASED ON THE PRIMARY CLINICAL RECORDS. [employer] [facility]. provides no warranty or guarantee of the accuracy or completeness of information in this document.
[2025-04-23 13:09] LABS: Age Gdln ACOG Testing Note (.); IGP, rfx Aptima HPV ASCU Note (.)
== END 2025-04-21 12:16 | disposition home or self-care (01) ==
LOC: LAB 12:15
PROVIDERS: Visit Provider Obstetrics & Gynecology
DX: Z01.419 Encounter for gynecological examination (general) (routine) without abnormal findings (principal)
CPT/HCPCS: 88175